=== PATIENT | male | born 1935 | race Caucasian/White ===

== ENCOUNTER 2017-01-20 12:15 | Inpatient (IN) | payer OTHER ==
[~2017-01-20] VITALS: Ht 170.2 cm; Wt 60.0 kg
--- NOTE | 2017-01-20 14:33 | DIAGNOSTIC IMAGING REPORT ---
PROCEDURE: CT HEAD W/WO CONTRAST INDICATION: STROKE SYMPTOMS. HX OF GLIOBAST TECHNIQUE: Noncontrast axial images. Following 125 ml of Isovue 370, axial images were repeated. Sagittal and coronal reformations. COMPARISON: Head CT 09/15/2016. FINDINGS: Status post left parietal craniotomy. No evidence of mass or abnormal enhancement. Mild cortical atrophy and enlargement of the ventricular system. Moderate white matter changes bilaterally. Small stable small right basal ganglia lacunar infarcts. There is no acute CVA or hemorrhage. with mild underlying encephalomalacia Minor ethmoid sinus disease. Mastoids are normal. IMPRESSION: 1. Left parietal craniotomy with no evidence of tumor recurrence 2. Mild atrophy with moderate white matter chronic ischemic changes and probable post radiation changes. 3. Results discussed with Dr. Britt at 01:54 p.m., [place] Standard Time All CT scans at this facility use dose modulation, iterative reconstruction, and/or weight-based dosing when appropriate to reduce radiation dose to as low as reasonably achievable.
--- NOTE | 2017-01-20 15:08 | ED ORDER SUMMARY ---
..... Patient: WILIAN SHIELDS OrderSheet Merged With [facility] VisitID: [id number] [place] [address] 81y, M Registration Date/Time: 01/20/2017 ORDER SHEET Weight: 63.5 kg (stated) Allergies: None GENERAL ORDERS: CT Head wo Cont Urgent (12:01/20/2017 Brandan Blanco) (Ack 12:25 SANDRITAurca ER Tech1) (12:32 Brandan Blanco) (Cancelled: Duplicate Order12:32 Brandan Blanco) CTA Head w Cont (No) (N/A) Urgent (12:01/20/2017 Brandan Blanco) (Ack 12:25 IJurccandida ER Tech1) (Cancelled: Duplicate Order12:31 Brandan Blanco) Denture Packer (Continuous) (possible stroke) (12:01/20/2017 Brandan Blanco) (Ack 12:25 Elhama ER Tech1) (12:35 Bunny R.N.) Pulse oximeter (possible stroke) (12:01/20/2017 Brandan Blanco) (Ack 12:25 Hernando ER Tech1) (12:35 Bunny R.N.) Stroke Panel Stat (12:01/20/2017 Brandan Blanco) (Ack 12:25 SANDRITAurccandida ER Tech1) (12:36 Bunny R.N.) TSH Urgent (12:01/20/2017 Brandan Blanco) (Ack 12:25 SANDRITAurccandida ER Tech1) (12:36 Bunny R.N.) EKG - ER Stat (12:01/20/2017 Brandan Blanco) (Ack 12:25 SANDRITAurccandida ER Tech1) (13:19 RKaruga) CT Head w/wo Cont (No) (N/A) Urgent (12:32 01/20/2017 Brandan Blanco) (Ack 12:38 SANDRITAurca ER Tech1) (14:57 Bunny R.N.) UA-Culture if indicated Urgent (16:04 01/20/2017 Bunny Fung.Bob per protocol) (16:07 JSimbeck R.N.) MEDICATION ORDERS: IV FLUIDS: IV Saline Lock (12:22 01/20/2017 Brandan Blanco) (12:37 Bunny Bliss) Dexamethasone IV 10 mg (NOW) (14:50 01/20/2017 Brandan Blanco) (Ack 14:57 Bunny Bliss) (15:19 Bunny Fung.Bob) ORDER SHEET NOTES: [Electronically signed by Tina Looney R.N. (16:52 01/20/2017)] [Electronically signed by Aashish Britt Dr. (00:30 01/21/2017)] [Electronically locked/signed by Tina Looney R.N. (16:52 01/20/2017)]
--- NOTE | 2017-01-20 15:08 | ED NURSING NOTES ---
Clinical Report - [facility] [address] [place] [address] 01/20/2017 12:17 Patient: WILIAN SHIELDS TRIAGE Triage time 12:22. Acuity: LEVEL 3. Chief Complaint: CONFUSED. Alert. No acute distress. ( FSBS 104). LUIS COMA SCORE: Luis Coma Scale: 14- eyes open spontaneously (4); best verbal response- disoriented (4); best motor response- obeys commands (6). (oriented to person and place). --12:35 Tina Looney R.N. 12:21 01/20/17. BP: 189/72. HR: 68. RR: 20. O2 saturation: 98% on room air. Temp: 98.7 F (oral). Pain level now: 0/10. --12:35 Tina Looney R.N. Weight: 63.5 kg stated. Height/Length: 67 inches Per Patient. BMI: 21.9. --12:29 Tina Looney R.N. Medications Allopurinol Oral 100 mg. Amlodipine Besylate-Valsartan Oral. Aspirin Oral. Avastin Intravenous, every 2 weeks (l). Colchicine Oral 0.6 mg. Daily Vitamin Oral. Lisinopril Oral 40 mg. [place] 3 Oral (Capsule 1000 mg). Prostate Therapy Complex Oral. Simvastatin Oral 20 mg. Triamcinolone & Emollient External. Vitamin D Oral. --12:33 Tina Looney R.N. Medication/allergy information source: the patient's family. --12:35 Tina Looney R.N. Allergies None. --12:33 Tina Looney R.N. History Arrived by private vehicle. Historian: family. Accompanied by family. Primary physician (Kalpana). This started unknown. ( daughter went to pick him up to run some errands this morning and found his room in disarray, he told her he couldn't find a specific card and he had been looking for it, daughter states he was making repetitive movements, he is oriented to place and person). SOCIAL HX: Former smoker. No alcohol use or drug use. LEARNING NEEDS ASSESSMENT: The learning needs assessment revealed no barriers. FALL RISK ASSESSMENT: Fall risk assessment completed. Risk factors identified include patient age greater than 65 years and impairment of mobility. Fall interventions initiated. Patient placed on stretcher. Side rails up x2. Brakes on Bed in low position. FUNCTIONAL ASSESSMENT: Functional assessment performed: requires assistance with the activities of daily living; uses walker- this mobility impairment is an ongoing problem. --12:35 Tina Looney R.N. PROBLEMS: Glioblastoma Multiforme. CVA - Cerebrovascular Accident. Gout. Cataracts. Hypercholesterolemia. Prostatitis. Hypertension. --12:28 Tina Looney R.N. ADDITIONAL SURGERIES: Tumor removal. Vasectomy. --12:28 Tina Looney R.N. Assessment GENERAL / NEURO / PSYCH: Alert. Appears in no acute distress. Patient appears calm and cooperative. RESPIRATORY: Respirations not labored. SKIN: Skin is warm and dry. --12:35 Tina Looney R.N. Interventions ID band on patient. To treatment room. --12:35 Tina Looney R.N. PHYSICAL ASSESSMENT 12:25. To room via wheelchair. Patient gowned. ( oriented to person and place, F- equal , A- good, S- normal, T- daughter states yesterday). GENERAL / NEURO / PSYCH: The patient is awake, alert and in no distress and is cooperative. RESPIRATORY: Respirations not labored. SKIN: Skin is warm but moist. --13:23 Tina Looney R.N. NURSING PROGRESS NOTES 12:37 01/20/2017 Site #1 started via IV in the right antecubital space with an 20g angiocath, with aseptic technique and good blood return; one attempt. Blood drawn: rainbow set. Labeled in the presence of the patient and sent to the lab. Saline lock flushed with 10 mL saline (by Pamela PECK). --12:37 Tina Looney R.N. 12:25. monitoring analyst, pulse oximeter and NIBP monitor placed on patient. Patient gowned. Head of bed elevated. Call light placed in reach. Side rails up x 2. Bed placed in lowest position. Brakes of bed on. --13:23 Tina Looney R.N. 13:54 01/20/17. BP: 138/54. HR: 64. RR: 16. O2 saturation: 99% on room air. Pain level now: 0/10. Additional comments: monitor shows NSR. --13:55 Pamela Yeboah R.N. 14:09 01/20/17. Cardiac rhythm: sinus rhythm. The patient is resting quietly. Overall patient status is the same- he states feels the same (pt lies on the bed, calling out that he is seeing "lite" flashes of red and white lights, family at bedside). GENERAL / NEURO / PSYCH: Patient is calm and cooperative. Alert. RESPIRATORY: No respiratory distress. SKIN: Skin is warm and dry. --14:09 Tina Looney R.N. 14:06 01/20/17. BP: 146/70. HR: 66. RR: 22. O2 saturation: 100%. Pain level now: 0/10. --14:09 Tina Looney R.N. EKG time: (13:15). EKG was performed by a tech and shown to the ED physician. --14:20 Ariana Porter 15:06 01/20/17. The patient is calm. Overall patient status is the same- he states feels the same (saying he needs to urinate, urinal placed and the pt is holding it). GENERAL / NEURO / PSYCH: Patient is calm and cooperative. Alert. RESPIRATORY: No respiratory distress. CVS: Cardiac rhythm: sinus rhythm. SKIN: Skin is warm and dry. --15:07 Tina Looney R.N. 15:18 Dr Olivarez @ bedside. --15:18 Tina Looney R.N. 15:19 01/20/2017 Dexamethasone IVP 10 mg given over 5 minute(s) via site #1. Allergies verified and confirmed 5 rights. IV patency established. IV site checked: no pain, redness, or swelling. IV flushed thoroughly pre- and post-medication administration. IVP given by RN (by chart). --15:19 Tina Looney R.N. 15:23 01/20/17. --15:23 Tina Looney R.N. 15:19 01/20/17. BP: 135/95. HR: 66. RR: 16. O2 saturation: 99% on room air. Pain level now: 0/10. --15:23 Tina Looney R.N. 15:45 assisted with urinal by ervin Griffin to lab. --16:40 Tina Looney R.N. 16:35. Reassessment after procedure and medication administered. Overall patient status is improved- he states feels the same (when Dr Olivarez was @ bedside, pt was oriented to person, place and time; he was starting to get slightly agitated because he "couldn't push the red button", tried to explain that he was going to a different room but he wanted the button). GENERAL / NEURO / PSYCH: Alert. RESPIRATORY: No respiratory distress. CVS: Cardiac rhythm: sinus rhythm. SKIN: Skin is warm and dry. --16:44 Tina Looney R.N. 13:00 01/20/17. BP: 145/74. HR: 68. RR: 19. O2 saturation: 98% on room air. --16:46 Tina Looney R.N. 14:30 01/20/17. BP: 139/71. HR: 63. RR: 18. O2 saturation: 99%. --16:51 Tina Looney R.N. DISPOSITION / DISCHARGE 16:28 01/20/17. Admitted to Acute Care. Transported via stretcher by [employer]. Report was given to a nurse via a phone call. All questions were answered. Report was acknowledged. ( transported to floor with SL intact). Patient's personal items include, daughter took pt's wallet, glasses, shirt and vest;. --16:28 Tina Looney R.N. 16:10 01/20/17. BP: 158/74. HR: 68. RR: 21. O2 saturation: 99% on room air. Pain level now: 0/10. --16:28 Tina Looney R.N. Patient's personal items include, jeans, belt, shoes; items were transported with the patient. --16:29 Tina Looney R.N. Departure time: [id number]. --16:39 Tina Looney R.N. Locked/Released at 01/20/2017 16:52 by Tina Looney R.N.
--- NOTE | 2017-01-20 15:08 | ED CLINICAL REPORT ---
Clinical Report - Physicians/Mid Levels [facility] [address] [place] [address] 01/20/2017 12:17 Patient: WILIAN SHIELDS Time Seen: 1218. Arrived- By private vehicle. Historian- patient. HISTORY OF PRESENT ILLNESS Chief Complaint: altered mental status. 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 It was abrupt in onset and has been constant but is gone now. Is now gone. (repeating behavior of taking shoes on and off). At its maximum deficit described as moderate. When seen in the E.D., it was gone. The patient has had altered mental status. Usually is alert and oriented X3. Similar symptoms previously: Once. ( getting treatment for glioblastoma. daughter states this happened last time and got better with "steroids"). Recent medical care: The patient was seen recently in a clinic. REVIEW OF SYSTEMS No chest pain or difficulty breathing. He has had skin rash. All systems otherwise negative, except as recorded above. PAST HISTORY See nurses notes. Medications: Allopurinol Oral 100 mg. Amlodipine Besylate-Valsartan Oral. Aspirin Oral. Avastin Intravenous, every 2 weeks (l). Colchicine Oral 0.6 mg. Daily Vitamin Oral. Lisinopril Oral 40 mg. [place] 3 Oral (Capsule 1000 mg). Prostate Therapy Complex Oral. Simvastatin Oral 20 mg. Triamcinolone & Emollient External. Vitamin D Oral. Allergies: None. SOCIAL HISTORY Never smoker. No alcohol use or drug use. No recent travel. Is a local resident. ADDITIONAL NOTES The nursing notes have been reviewed. PHYSICAL EXAM Vital Signs: 01/20/2017 12:21 BP: 189/72. HR: 68. RR: 20. O2 saturation: 98%. Temp: 98.7 F. Pain level now: 0/10. Hypertensive. Oxygen saturation normal. Appearance: Alert. No acute distress. Head: Head atraumatic. Eyes: Pupils equal, round and reactive to light. ENT: Normal ENT inspection. Airway intact. Pharynx normal. Neck: Normal inspection. Neck supple. No meningeal signs. CVS: Normal heart rate and rhythm. Pulses normal. Respiratory: No respiratory distress. Abdomen: Soft and nontender. No organomegaly. Skin: Skin warm and dry. Normal skin color. No rash. Normal skin turgor. Extremities: Extremities exhibit normal ROM. No lower extremity edema. Neuro: Alert. Oriented X 3. Mood/affect normal. Speech normal. Cranial nerves normal (as tested). No cerebellar findings. No motor deficit. No sensory deficit. Reflexes normal. LABS, X-RAYS, AND EKG EKG: No acute ischemia. Normal sinus rhythm. Rate: 60. Normal P waves. First-degree atrioventricular block (218). Normal QRS complex. Normal ST and T waves, QT and QTc. normal sinus with 1st degree AV block. The study has been interpreted contemporaneously. The study has been independently viewed by me. The EKG appears to be a good tracing. CT Head: (PROCEDURE: CT HEAD W/WO CONTRAST INDICATION: STROKE SYMPTOMS. HX OF GLIOBAST TECHNIQUE: Noncontrast axial images. Following 125 ml of Isovue 370, axial images were repeated. Sagittal and coronal reformations. COMPARISON: Head CT 09/15/2016. FINDINGS: Status post left parietal craniotomy. No evidence of mass or abnormal enhancement. Mild cortical atrophy and enlargement of the ventricular system. Moderate white matter changes bilaterally. Small stable small right basal ganglia lacunar infarcts. There is no acute CVA or hemorrhage. with mild underlying encephalomalacia Minor ethmoid sinus disease. Mastoids are normal. IMPRESSION: 1. Left parietal craniotomy with no evidence of tumor recurrence 2. Mild atrophy with moderate white matter chronic ischemic changes and probable post radiation changes.). Head CT performed with and without contrast. The study was independently viewed by me, interpreted by the radiologist and discussed with the radiologist. Laboratory Tests: CBC w Diff: (CARYN: 01/20/2017 12:30) ( MsgRcvd 01/20/2017 12:43) Final results Test Result Flag Units (Reference) WHITE BLOOD COUNT 6.0 K/uL (4.5-11.5) RED BLOOD COUNT 4.62 M/uL (4.50-5.90) HEMOGLOBIN 14.3 gm/dL (13.5-17.5) HEMATOCRIT 42.2 % (41.0-53.0) MEAN CELL VOLUME 91 fL (80-100) MEAN CORPUSCULAR HGB 31 pg (26-34) MEAN CORPUSCULAR HGB CONC 34 g/dL (31-37) RED CELL DISTRIBUTION WIDTH 13.6 % (11.6-14.8) PLATELET COUNT 132 L K/uL (150-400) NEUTROPHIL % 67.5 % (50-75) LYMPH % 20.3 L % (25-40) MONO % 10.7 % (3-14) EOSINOPHIL % 1.2 % (0-4) BASOPHIL % 0.3 % (0-2) PT with INR: (CARYN: 01/20/2017 12:30) ( [facility] 01/20/2017 13:03) Final results Test Result Flag Units (Reference) INR 0.9 (0.8-1.2) Low Intensity Therapy: INR 1.5-2.0 PT range 18.5-23.1Mod.Intensity Therapy: INR 2.0-3.0 PT range 23.1-31.5High Intensity Therapy: INR 2.5-3.5 PT range 27.4-35.5High Intensity Therapy 2: INR 3.0-4.0 PT range 31.5-39.3 APTT 27 SECONDS (24-34) FIBRINOGEN 350 mg/dL (193-455) D-DIMER QUANTITATIVE 1.47 H ug/mLFEU (0.27-0.52) The primary value of this quantitative assay relates toits negative predictive value (i.e. exclusion) of pulmonaryembolism/deep vein thrombosis/DIC.Elevated levels of d-dimer may also occur with:, age, cancer, inflammation, liver disease,post-op, infection, hematoma, coronary disease, peripheralarteriopathy, bleeding disorders and thrombolytic treatment.Results should be correlated with other clinical andradiological data.Testing Methodology: Latex Immunoassay TSH: (CARYN: 01/20/2017 12:30) ( [facility] 01/20/2017 14:07) Final results Test Result Flag Units (Reference) THYROID STIMULATING HORMONE 2.517 uIU/mL (0.30-3.74) CMP: (CARYN: 01/20/2017 12:30) ( MsgRcvd 01/20/2017 13:06) Final results Test Result Flag Units (Reference) GLUCOSE 110 mg/dL (70-110) BUN 21 H mg/dL (7-18) CREATININE 1.2 mg/dL (0.6-1.3) Estimated GFR >60 mL/min Estimated GFR- >60 mL/min Note: Persistent reduction over 3 months in eGFR<60 mL/min/1.73 m2 defines CKD. Patients with eGFR values>=60 mL/min/1.73 m2 may also have CKD if evidence ofpersistent proteinuria. Additional information may be foundat www.kidney.org. SODIUM 142 mmol/L (136-145) POTASSIUM 4.4 mmol/L (3.5-5.1) CHLORIDE 104 mmol/L (98-107) CARBON DIOXIDE 28 mmol/L (21-32) CALCIUM 9.2 mg/dL (8.5-10.1) TOTAL PROTEIN 7.2 g/dL (6.4-8.2) ALBUMIN 4.0 g/dL (3.3-5.0) BILIRUBIN, TOTAL 1.1 H mg/dL (0.0-1.0) ALKALINE PHOSPHATASE 89 U/L (46-116) AST (SGOT) 20 U/L (15-37) ALT (SGPT) 23 U/L (12-78) . PROGRESS AND PROCEDURES Course of Care: the patient is a pleasant 81-year-old male with past medical history significant for glioblastoma who is currently undergoing treatment. Patient had a prior episode like this in the past with an exacerbation of his glioblastoma which resolved with steroid treatme Differential diagnosis at this time includes a stroke versus cerebral edema versus intracranial bleed. Patient and the daughter are agreeable to the treatment plan at this time. No other concerns at this time. Patient is afebrile. No concern for meningitis. Patient's workup was remarkable for the findings above. Patient with no acute changes on CT scan of the head. EKG is unremarkable. Patient without any allegedly abnormalities. Because of the patient's workup in the emergency arm will discuss care with his doctor is taking care of his glioblastoma. Patient otherwise continues to have a nonfocal neurological examination and is appropriate and cooperative. Had spoken to Dr. Shaffer recommended the patient be observed because of the abnormal behavior. Also recommended steroids be given. No further recommendations made. Do not feel patient needs to be transferred at this time. Spoke to the hospitalist who states that the patient can be admitted if he meets criteria for admission. Spoke to neurology at [facility] who also agreed that the patient should be observed and have steroids given. Recommended patient also be hydrated. Steroids should be given dexamethasone 4 mg every 6. Steroids of guardian initially been given prior to neurology's recommendations. Patient continues to be resting in bed and in no acute distress. Was able to speak to the hospitalist who is agreeable to accept the patient under observation. No other acute other maladies noted. Discussed patient care with the daughter. No further questions. All questions answered. Patient is agreeable to the treatment plan. prior to patient's departure from the emergency department is noted to have no focal neurological deficits. Patient is resting in bed and in no acute distress. Patient appears nontoxic. No concern at this time for meningitis or serious bacterial infection. Symptoms likely due to the patient's and glioblastoma. discussed with the patient is workup here in emergency department: Diagnosis, workup, and plan of care. All questions have been answered. The patient is agreeable to the treatment plan. of note, no acute findings or changes noted on patient's CT scan of the head however because of his symptoms, would be concerned for edema not found on CT scan. Per neurology's recommendations as well as patient's doctor who is managing his and glioblastoma an outpatient, will start patient on IV Decadron. Recommended 4 mg of Decadron every 6 hours. Critical care performed (65 minutes). Time is exclusive of separately billable procedures. Time includes: direct patient care, patient reassessment, coordination of patient care, interpretation of data (laboratory data), review of patient's medical records, medical consultation, family consultation regarding treatment decisions and documentation of patient care. Consult obtained. Dr. Shaffer. Recommended dexamethazone and observation. Phone consult only. CLINICAL IMPRESSION Acute altered mental status cerebral edema secondary to glioblastoma. (Electronically signed by Aashish Britt Dr. 01/21/2017 0:30)
--- NOTE | 2017-01-20 15:08 | ED ORDER SUMMARY ---
..... Patient: WILIAN SHIELDS OrderSheet [facility] VisitID: [id number] [place] [address] 81y, M Registration Date/Time: 01/20/2017 ORDER SHEET Weight: 63.5 kg (stated) Allergies: None GENERAL ORDERS: CT Head wo Cont Urgent (12:01/20/2017 Brandan Blanco) (Ack 12:25 SANDRITAurca ER Tech1) (12:32 Brandan Blanco) (Cancelled: Duplicate Order12:32 Brandan Blanco) CTA Head w Cont (No) (N/A) Urgent (12:01/20/2017 Brandan Blanco) (Ack 12:25 IJurccandida ER Tech1) (Cancelled: Duplicate Order12:31 Brandan Blanco) Quality Manager (Continuous) (possible stroke) (12:01/20/2017 Brandan Blanco) (Ack 12:25 Elhama ER Tech1) (12:35 Bunny R.N.) Pulse oximeter (possible stroke) (12:01/20/2017 Brandan Blanco) (Ack 12:25 Hernando ER Tech1) (12:35 Bunny R.N.) Stroke Panel Stat (12:01/20/2017 Brandan Blanco) (Ack 12:25 SANDRITAurccandida ER Tech1) (12:36 Bunny R.N.) TSH Urgent (12:01/20/2017 Brandan Blanco) (Ack 12:25 SANDRITAurccandida ER Tech1) (12:36 Bunny R.N.) EKG - ER Stat (12:01/20/2017 Brandan Blanco) (Ack 12:25 SNADRITAurccandida ER Tech1) (13:19 RKaruga) CT Head w/wo Cont (No) (N/A) Urgent (12:32 01/20/2017 Brandan Blanco) (Ack 12:38 SANDRITAurca ER Tech1) (14:57 Bunny R.N.) UA-Culture if indicated Urgent (16:04 01/20/2017 Bunny Fung.Bob per protocol) (16:07 JSimbeck R.N.) MEDICATION ORDERS: IV FLUIDS: IV Saline Lock (12:22 01/20/2017 Brandan Blanco) (12:37 Bunny Bliss) Dexamethasone IV 10 mg (NOW) (14:50 01/20/2017 Brandan Blanco) (Ack 14:57 Bunny Bliss) (15:19 Bunny Fung.Bob) ORDER SHEET NOTES: [Electronically signed by Tina Looney R.N. (16:52 01/20/2017)] [Electronically signed by Aashish Britt Dr. (00:30 01/21/2017)] [Electronically locked/signed by Tina Looney R.N. (16:52 01/20/2017)]
--- NOTE | 2017-01-20 16:26 | HISTORY AND PHYSICAL ---
ADMITTED: 01/20/2017 CHIEF COMPLAINT: 1. Confusion HISTORY OF PRESENT ILLNESS: This is an 81-year-old white male who is not able to give any history at all and no family member around, so history was taken from the ED notes and EMS notes. Reportedly the daughter found him in his room with the furniture in disarray and trashed. The patient is confused and making nonpurposeful spontaneous movements, involuntary movements, confused and lethargic, and was not aware of what he is doing and where he is. So the patient was taken to emergency for further evaluation. The patient unable to find a cart and was not able to locate and could not say what exactly he was looking for, and had repeated unpurposeful movements. MEDICAL/SURGICAL HISTORY: Past medical history was remarkable for glioblastoma multiforme, which has been going on for some time. The patient looks like he had a surgery, which was ------- successful. Also a history of a stroke, gout, hypercholesteremia, hypertension, and cataract. Surgical history: Remarkable for tumor removal and vasectomy. Last hospitalizations, according to the old charts, was on 08/05/2015 for brain surgery. MEDICATIONS: 1. Allopurinol 100 mg daily. 2. Amlodipine and Losartan, dosages not known. 3. Aspirin 81 mg daily. 4. Avastin intravenous every 2 weeks. 5. Colchicine 0.6 mg daily. 6. Lisinopril 40 mg daily. 7. Zocor 20 mg daily. 8. Vitamin D supplement. ALLERGIES: 1. NO KNOWN DRUG ALLERGY. SOCIAL HISTORY: A 15 pack year history, quit 30 years ago. No alcohol use in the last 10 years. No drug abuse. The patient lives with his girlfriend and has a daughter. FAMILY HISTORY: Noncontributory. REVIEW OF SYSTEMS: Could not be obtained, since the patient was not be able to give any history. PHYSICAL EXAMINATION: VITAL SIGNS: Blood pressure is 189/72, pulse is 68. Respirations 20, oxygen saturation 98% on room air, temperature is 98.7. GENERAL APPEARANCE: Well-developed, well-nourished. The patient does not seem in any acute distress, but seems confused and lethargic. HEAD AND NECK: Ears: Normal tympanic membranes. Mouth: Normal hypopharynx, no exudation, no erythema. Nose: Normal mucosa. Neck supple. No JVD. No carotid bruit. No palpable mass. SKIN: Warm and dry with good turgor. LUNGS: Clear to auscultation. No rhonchi or wheezing or crackles. HEART: Regular S1 and S2. No murmur, no S3 was heard. ABDOMEN: Soft, nontender. Bowel sounds are positive. EXTREMITIES: No edema. Good peripheral pulses. No signs of DVT or cyanosis. MUSCULOSKELETAL: Grossly within normal limits. NEUROLOGIC: The patient is alert and oriented x3 but quite confused and is not able to give any straight answer or engage in a meaningful conversation. The patient is able to follow the commands only partially. Pupils are equal, round, and reactive to light. Extraocular movements could not be evaluated. No motor deficits. No cerebella sign, but the patient has rough spontaneous upper extremity movements. Deep tendon reflexes are bilateral and symmetric. No cerebellar signs. LAB/IMAGING: EKG is unremarkable, normal sinus rhythm. White blood count is 6, hemoglobin is 14.3, hematocrit 42.2, and platelet count is 132. D-dimer was 1.47. INR is 0.9. Fibrinogen is 350. TSH is 2.5. Glucose 110, BUN is 21, creatinine is 1.2, sodium is 142, potassium is 4.4, chloride is 104, CO2 is 28, calcium is 9.2. Liver enzymes unremarkable. CT of the head shows a glioblastoma but per ED physician research and compared to the old one seems stable and not much change in size. IMPRESSION: 1. Glioblastoma. 2. Hypertension. 3. Hyperlipidemia. 4. Gout. PLAN: In discussion that the emergency department physician had with the patient 's neurologist also, [facility], the patient will be admitted for observation and neuro checks. We will put the patient on Decadron 4 mg every 6 hours and neuro check will be done, and if the patient shows any dramatic change of the neurologic exam or increased focal neurologic symptoms, we will definitely do MRI of the brain, but for now I am going to hold on MRI of the brain. Even though D-dimer is high, there are no other signs indicating PE, so I am not going to hold on the CT angiogram for the time being, since the patient is stable in terms of breathing and no other symptoms. Patient was not able to give consent for code status and no family was availabe but they will bring the advance care plan from home soon.
--- NOTE | 2017-01-20 16:45 | NUR ---
PT'S LOC IS ALTERED AND UNABLE TO ANSWER QUESTIONS FOR INTAKE. ENTERED MUCH INFORMATION FROM DAUGHTER NELA PROVIDED WHILE IN ED.
[2017-01-20 17:18] VITALS: BP 188/101
--- NOTE | 2017-01-20 19:50 | NUR ---
Pt continued to want to urinate without output, student career development specialist scanned bladder with 990 ml in bladder. Notified MD Rosa NAGY ordered wright catheter, This rn placed wright without issue. 15ml saline is in folley balloon to hold tubing in place. Will notify next rn. Output from wright is light yellow 900ml. wctm. Pt seems to be resting now.
[2017-01-20 21:47] VITALS: BP 147/67
--- NOTE | 2017-01-20 23:46 | NUR ---
AROUND 30 MINUTES AGO, PT AWOKE AND WAS AGGITATED. ATTEMPTING TO REMOVE IV, CATHETER, BED LINENS, CRAWLING OUT OF BED...NO STRIKING AT STAFF. SITTER PLACED IN ROOM, NOTIFIED . DR CHO ORDERED VASOTEC 1.25MG IV Q6 FIRST DOSE NOW, 1.5 INCH NITRO PASTE Q6, 0.5 MG ATIVAN Q4/PRN FOR AGGITATION. PANTS ARE PLACED ON PT, IV SITE IS WRAPPED IN COBAN UP THE ARM TO PROTECT IV SITE. ORDERS SENT. [facility].
--- NOTE | 2017-01-21 00:31 | ED MAR SUMMARY ---
..... Medication Administration Record [facility] [address] [place] [address] Patient: WILIAN SHIELDS Visit ID: [id number] 81y, M Weight: 63.5 kg Height/Length: 67 in BMI: 21.9 ALLERGIES: None Given 15:19 01/20/2017 Tina Looney R.N. Medication Administered: DEXAMETHASONE [IVP], Dose: 10 mg IVP over 5 minute(s), Site: #1 right AC. Medication Ordered: Dexamethasone IV 10 mg (NOW).
--- NOTE | 2017-01-21 00:31 | ED DISCHARGE INSTRUCTIONS ---
Patient: WILIAN SHIELDS General Instructions [facility] VisitID: [id number] [address] [place] [address] 81y, M Registration Date/Time: 01/20/2017 Acute altered mental status cerebral edema secondary to glioblastoma. (Electronically signed by Aashish Britt Dr. 01/21/2017 0:30)
--- NOTE | 2017-01-21 00:31 | ED DISCHARGE INSTRUCTIONS ---
Patient: WILIAN SHIELDS General Instructions [facility] VisitID: [id number] [address] [place] [address] 81y, M Registration Date/Time: 01/20/2017 Acute altered mental status cerebral edema secondary to glioblastoma. (Electronically signed by Aashish Britt Dr. 01/21/2017 0:30)
--- NOTE | 2017-01-21 00:31 | ED MAR SUMMARY ---
..... Medication Administration Record [facility] [address] [place] [address] Patient: WILIAN SHIELDS Visit ID: [id number] 81y, M Weight: 63.5 kg Height/Length: 67 in BMI: 21.9 ALLERGIES: None Given 15:19 01/20/2017 Tina Looney R.N. Medication Administered: DEXAMETHASONE [IVP], Dose: 10 mg IVP over 5 minute(s), Site: #1 right AC. Medication Ordered: Dexamethasone IV 10 mg (NOW).
--- NOTE | 2017-01-21 00:31 | ED MED RECONCILIATION SUMMARY ---
Patient: WILIAN SHIELDS Medication Reconciliation Report [facility] VisitID: [id number] [address] [place] [address] 81y, M Registration Date/Time: 01/20/2017 Weight: 63.5 kg Height/Length: 67 in. BMI: 21.9 ALLERGIES: None The patient's Home Medications are listed below: THE FOLLOWING MEDICATIONS NEED TO BE RECONCILED: Allopurinol Oral 100 mg Amlodipine Besylate-Valsartan Oral Aspirin Oral Avastin Intravenous, every 2 weeks, l Colchicine Oral 0.6 mg Daily Vitamin Oral Lisinopril Oral 40 mg [place] 3 Oral (1000 mg) Prostate Therapy Complex Oral Simvastatin Oral 20 mg Triamcinolone & Emollient External Vitamin D Oral The source(s) of the original Home Medication information: patient's family member The following Medications were given to the patient in the Emergency Department: Dexamethasone [IVP] IVP 10 mg, administered: 01/20/2017 3:19:00 PM The following Medications were prescribed to the patient: None.
--- NOTE | 2017-01-21 00:31 | ED MED RECONCILIATION SUMMARY ---
Patient: WILIAN SHIELDS Medication Reconciliation Report [facility] VisitID: [id number] [address] [place] [address] 81y, M Registration Date/Time: 01/20/2017 Weight: 63.5 kg Height/Length: 67 in. BMI: 21.9 ALLERGIES: None The patient's Home Medications are listed below: THE FOLLOWING MEDICATIONS NEED TO BE RECONCILED: Allopurinol Oral 100 mg Amlodipine Besylate-Valsartan Oral Aspirin Oral Avastin Intravenous, every 2 weeks, l Colchicine Oral 0.6 mg Daily Vitamin Oral Lisinopril Oral 40 mg [place] 3 Oral (1000 mg) Prostate Therapy Complex Oral Simvastatin Oral 20 mg Triamcinolone & Emollient External Vitamin D Oral The source(s) of the original Home Medication information: patient's family member The following Medications were given to the patient in the Emergency Department: Dexamethasone [IVP] IVP 10 mg, administered: 01/20/2017 3:19:00 PM The following Medications were prescribed to the patient: None.
--- NOTE | 2017-01-21 01:23 | NUR ---
PT given 0.5 mg Ativan for aggitation. wctm.
--- NOTE | 2017-01-21 02:35 | NUR ---
CALLED MD TO REQUEST TELE BE REMOVED FOR PT'S SAFETY. VSDallas AND MD MARQUIS ASHFORD'D REMOVAL OF TELE.
--- NOTE | 2017-01-21 03:24 | NUR ---
PT FINALLY FELL ASLEEP.
--- NOTE | 2017-01-21 05:21 | NUR ---
NOTIFIED MD CHO THAT PT IS INCREASING IN AGGITATION AND BEGINNING TO STRIKE OUT AND PUSH AWAY STAFF. PT'S EYES ARE CLOSED AND NO LONGER RESPONGING TO STAFF DIRECTIONS. CRAWLING OUT OF BED, REMOVING BEDDING AND CLOTHES. MD CHO ORDERED 2.5 MG HALDOL IM NOW. WCTM.
--- NOTE | 2017-01-21 06:13 | NUR ---
PT SLEPT FOR A TOTAL OF AN HOUR. ADMIN HALDOL AND PT'S BODY LOOKED RELAXED, NO TWITCHING, REACHING OUT. WCTM.
[2017-01-21 07:44] VITALS: BP 142/62
--- NOTE | 2017-01-21 09:09 | NUR ---
PATIENT CALM THIS AM AND ANSWERING QUESTIONS APPROPRIATELY. ATE BREAKFAST WITH HELP OF SYSTEMS CONSULTANT. PATIENT COMES FROM AL FACILITY. NOT IMPULSIVE THIS AM. STATES HE WOULD LIKE PATIENT TO AMBULATE IN HALLS TODAY AND IF OK PATIENT TO DC TO HOME. MADE PHONE CALL TO DTR.
--- NOTE | 2017-01-21 10:18 | Progress Note ---
Subjective General ADVANCED CARE PLAN History of Present Illness his is an 81-year-old white male who is not able to give any history at all and no family member around, so history was taken from the ED notes and EMS notes. Reportedly the daughter found him in his room with the furniture in disarray and trashed. The patient is confused and making nonpurposeful spontaneous movements, involuntary movements, confused and lethargic, and was not aware of what he is doing and where he is. So the patient was taken to emergency for further evaluation. The patient unable to find a cart and was not able to locate and could not say what exactly he was looking for, and had repeated unpurposeful movements. A discussion was undertaken with the patient regarding previous advance care arrangements/decisions. The following advanced directives were noted by the patient and discussed with me at the time of admission. ADVANCED DIRECTIVES: 1. Living well: He has 2. POLST: He has 3. CODE STATUS: 4. [facility] care: Yes 5. Donor card: Yes The patient has expressed interest in not pursuing any form of resuscitation at this time. She has opted not to pursue intubation/mechanical ventilation, CPR, electrical cardioversion, or life-sustaining efforts involving drugs at the time of cardiopulmonary arrest. The patient's wishes were documented in the chart and orders regarding the patient's wishes entered into the [employer] system. The "Advance Care Plan Document" was not distributed to patient to discuss with his family. Less than 30 minutes was spent in performing the above tasks and documentation of the patient's advanced care plan.
[2017-01-21 11:28] VITALS: BP 129/46
--- NOTE | 2017-01-21 12:22 | Progress Note ---
Subjective General patinet is alert&oridetedx3, comfortalbe in bed seems calm but had a rough night, tried to ambulate could not, hard to initiate walking and keep his balance Physical Exam Vital Signs / I&Os Vital Signs Date Time Temp Pulse Resp B/P Pulse O2 O2 Flow FiO2 Ox Delivery Rate 01/21 1128 98.6 75 20 129/46 98 Room Air 0.0 01/21 0744 98.1 68 22 142/62 97 Room Air 0.0 01/20 2147 99.7 85 16 147/67 92 Room Air 01/20 1718 97.5 79 20 188/101 99 Room Air I&O 01/21 0000 01/20 1600 01/20 0800 Intake Total 440 Output Total 1760 Balance -1320 General Appearance No acute distress Lungs Clear to auscultation Cardiovascular Regular rate and rhythm, Normal S1 and S2 Abdomen Normal bowel sounds, Soft, No tenderness Extremities No edema Neurological difficulty initiating walking and keeping his balance, no spontonious movments LAB Results Laboratory Tests 01/21 01/20 01/20 0615 1600 1230 Chemistry Plasma Sodium (136 - 145 mmol/L) 138 Plasma Potassium (3.5 - 5.1 mmol/L) 3.9 Plasma Chloride (98 - 107 mmol/L) 101 CO2 (Enzymatic) (21 - 32 mmol/L) 25 BUN (7 - 18 mg/dL) 21 Creatinine (0.6 - 1.3 mg/dL) 1.1 Est GFR ( Amer) (mL/min) >60 Est GFR (Non-Af Amer) (mL/min) >60 Glucose (70 - 110 mg/dL) 156 Plasma Calcium (8.5 - 10.1 mg/dL) 8.6 TSH 3rd Generation (0.30 - 3.74 uIU/mL) 2.517 Hematology WBC (4.5 - 11.5 K/uL) 6.6 RBC (4.50 - 5.90 M/uL) 4.29 Hgb (13.5 - 17.5 gm/dL) 13.1 Hct (41.0 - 53.0 %) 38.9 MCV (80 - 100 fL) 91 MCH (26 - 34 pg) 31 RDW (11.6 - 14.8 %) 13.1 Neut % (Auto) (50 - 75 %) 93.3 Lymph % (Auto) (25 - 40 %) 5.6 [place] % (Auto) (3 - 14 %) 1.1 Eos % (Auto) (0 - 4 %) 0 Baso % (Auto) (0 - 2 %) 0 Plt Count, EDTA (150 - 400 K/uL) 116 PUBS MCHC (31 - 37 g/dL) 34 Urines Urine Color YELLOW Urine Appearance CLEAR Urine pH (5.0 - 8.0) 8.0 Ur Specific [place] (1.010 - 1.030) 1.010 Urine Protein (NEGATIVE) NEGATIVE Urine Ketones (NEGATIVE) NEGATIVE Urine Blood (NEGATIVE) NEGATIVE Urine Nitrite (NEGATIVE) NEGATIVE Urine Bilirubin (NEGATIVE) NEGATIVE Urine Urobilinogen (0.2 - 1.0 EU/dL) 0.2 Ur Leukocyte Esterase (NEGATIVE) TRACE Urine RBC (0 - 1 rbc/hpf) NONE SEEN Urine WBC (0 - 1 wbc/hpf) 1-3 Ur Epithelial Cells (0 - 5 EPI/hpf) 0-1 Urine Bacteria (NONE SEEN) TRACE (<1+) Urine Glucose (NEGATIVE) NEGATIVE Urine Comment CULTURE INDICATED 01/20 1230 Chemistry Plasma Sodium (136 - 145 mmol/L) 142 Plasma Potassium (3.5 - 5.1 mmol/L) 4.4 Plasma Chloride (98 - 107 mmol/L) 104 CO2 (Enzymatic) (21 - 32 mmol/L) 28 BUN (7 - 18 mg/dL) 21 Creatinine (0.6 - 1.3 mg/dL) 1.2 Est GFR ( Amer) (mL/min) >60 Est GFR (Non-Af Amer) (mL/min) >60 Glucose (70 - 110 mg/dL) 110 Plasma Calcium (8.5 - 10.1 mg/dL) 9.2 Total Bilirubin (0.0 - 1.0 mg/dL) 1.1 AST (15 - 37 U/L) 20 ALT (12 - 78 U/L) 23 Alkaline Phosphatase (46 - 116 U/L) 89 Total Protein (6.4 - 8.2 g/dL) 7.2 Albumin (3.3 - 5.0 g/dL) 4.0 Coagulation INR (0.8 - 1.2) 0.9 APTT (24 - 34 SECONDS) 27 Fibrinogen (193 - 455 mg/dL) 350 D-Dimer, Quantitative (0.27 - 0.52 ug/mLFEU) 1.47 Hematology WBC (4.5 - 11.5 K/uL) 6.0 RBC (4.50 - 5.90 M/uL) 4.62 Hgb (13.5 - 17.5 gm/dL) 14.3 Hct (41.0 - 53.0 %) 42.2 MCV (80 - 100 fL) 91 MCH (26 - 34 pg) 31 RDW (11.6 - 14.8 %) 13.6 Neut % (Auto) (50 - 75 %) 67.5 Lymph % (Auto) (25 - 40 %) 20.3 [place] % (Auto) (3 - 14 %) 10.7 Eos % (Auto) (0 - 4 %) 1.2 Baso % (Auto) (0 - 2 %) 0.3 Plt Count, EDTA (150 - 400 K/uL) 132 PUBS MCHC (31 - 37 g/dL) 34 Microbiology Date/Time Procedure - Status Source Growth 01/20 1600 Urine Culture - RECD URINE CC Assessment and Plan Problem List 1. Glioblastoma Plan patient is not improving, was not able to ambulate, keep his balance had discussion wiht Dr. Valle Oncology-Radiology, will repeat MRI, continue Decadron, Talked to Dr Echeverria radiologist to communite with Dr valle after MRI done, Tried to transfer pt. to [place] with inpt neurology on board,they declined transfer, will change status of patient to inpatient. do PT evaluation continue Decadron 2. Altered mental status, unspecified Plan improved 3. HTN (hypertension) Plan controlled continue current meds
--- NOTE | 2017-01-21 13:33 | NUR ---
In to see patient with report of a skin tear to right elbow, small open area to right elbow, area cleansed with NS and Hydrogel applied, covered with adhesive bandage and coban (being used to support IV tubing and keep hime from pulling at it). WIll change q3days, and continue to monitor.
--- NOTE | 2017-01-21 13:36 | NUR ---
NUTRITION ASSESSMENT: S: Pt admitted with dx/o confusion with PMH of glioblastoma, gout, stroke, hypercholesterolemia, HTN, cataract, gout. Pt eating well, fed all meals and 1:1 with care. Pt needs cut up moist foods per nsg, will alert kitchen staff. Pt likes sweets per report. O: Wts: 62.5 kg Ht: 67" IBW: 58-73 kg BMI: 21.6 Est Kcals: ~3644-2031 kcals per day Est Pro: ~70-80 g per day Est Fluids: ~2.0 L per day Meds Incl: allopurinol, aspirin, lipitor, colchicine, lisinopril, nitro, protonix, dexamthisone, see eMar complete list. Labs Incl: glucose 156, BUN 21, Na+ 138, K+ 3.9, Ca+ 8.6, HCT 38.9, HGB 13.1, MCV 91, MCH 31, (5/4) albumin 4.0, total pro 7.2 Skin: Faisal 15; waffle overlay in place (skin tear right elbow, contusion) A: Pt appears to have a good/fair appetite ~40-80% of general diet. Rec above modifications to foods suggested above. Rev'd meds and labs. Noted glucose lab elevated, however may be influenced by steroid rx (dexamethisone). Rec encourage po and fluids, offer assist and feeding with meals. Mighty shake q meal to help opmtimize kcal and protein intake. P: 1. Cut up meats, extra gravy and sauce, no rice sub mashed potatoes and gravy. 2. Mighty shakes q meal
[2017-01-21 13:47] VITALS: BP 116/50
--- NOTE | 2017-01-21 14:39 | NUR ---
VASOTEC DOSE GIVEN AND VS CHECKED AFTER GIVEN. HR RUNNING AT 55 AND BP HAS COME DOWN. PHONE CALL TO HOSPITALIST, DR. VILLATORO TO ASK IF HE WANTED TO CONTINUE WITH NITROPASTE TO CHEST WALL AND Q 6 HOURS VASOTEC AT THIS TIME. STATED HE WOULD CALL BACK. AWAIT CALL BACK. PATIENT IS STABLE AT THIS TIME AND IS CURRENTLY AT MRI. DTR, ANGELES, CAME IN TODAY TO FILL OUT MRI QUESTIONAIRRE FOR PATIENT PATIENT IS CURRENTLY UNABLE. PATIENT AMBULATED EARLIER WITH FWW AND 2 PERSON ASSIST. PATIENT LEANED BACK WHILE TAKING STEPS AND IT WAS DIFFICULT FOR HIM TO AMBULATE DUE TO CONFUSION.
[2017-01-21 18:00] VITALS: BP 124/63
--- NOTE | 2017-01-21 19:00 | NUR ---
A&OX2 BUT SOMETIMES FORGETFUL. LS CTA, HR REG AND BT ACTIVE. NO PAIN OR NAUSEA. UP IN CHAIR FOR DINNER AND TOLERATED WELL. VSS. MONEY MARKET CLERK IN W/ PT.
--- NOTE | 2017-01-21 19:11 | NUR ---
PT CONFUSED AND AGITATED. GETTING UP FROM BED AND PULLING AT IV AND VAZQUEZ. MD NOTIFIED, NEW MEDS ORDERED.
[2017-01-21] MEDS ORDERED: SIMVASTATIN40 MG (23:59)
--- NOTE | 2017-01-22 07:49 | Progress Note ---
Subjective General Note Date: 2016 Admission Date: January 12, 2017 Hospital Day: 2 PCP: Cesar Acuna Advanced Directive: No CODE Room: 205 81-year-old white male with a significant past medical history of glioblastoma multiforme, stroke, gout, hypercholesteremia, hypertension who presented to [facility] emergency department on the day of admission with confusion nonpurposeful spontaneous movements, involuntary movements. Lethargic. [facility] ER evaluation was consistent with edematous changes in the brain.. Secondary to the above, the patient was admitted by Dayo Oliveira M.D. for further evaluation and treatment. Subjective: Patient had a relatively calm night. Required 10 mg held overnight. Still however less restlessness, right unusual in evening. Eating well, sleeping during the day. No vomiting, no diarrhea. Patient requests None Constitutional Denies: Chills, Sweats. Physical Exam Vital Signs / I&Os Vital Signs Date Time Temp Pulse Resp B/P Pulse O2 O2 Flow FiO2 Ox Delivery Rate 01/22 0030 Room Air 01/21 1800 97.5 75 18 124/63 99 Room Air 01/21 1630 Room Air 01/21 1347 97.9 55 20 116/50 99 Room Air 0.0 01/21 1128 98.6 75 20 129/46 98 Room Air 0.0 I&O 01/21 0800 /05 1600 06 0000 Intake Total 863 1200 600 Output Total 800 950 Balance 863 400 -350 General Appearance No acute distress (sleeping) HEENT EOMI Lungs Clear to auscultation Cardiovascular Regular rate and rhythm, Normal S1 and S2 Extremities No edema LAB Results Laboratory Tests 01/22 0537 Chemistry Plasma Sodium (136 - 145 mmol/L) 144 Plasma Potassium (3.5 - 5.1 mmol/L) 4.0 Plasma Chloride (98 - 107 mmol/L) 108 CO2 (Enzymatic) (21 - 32 mmol/L) 27 BUN (7 - 18 mg/dL) 25 Creatinine (0.6 - 1.3 mg/dL) 1.0 Est GFR ( Amer) (mL/min) >60 Est GFR (Non-Af Amer) (mL/min) >60 Glucose (70 - 110 mg/dL) 132 Plasma Calcium (8.5 - 10.1 mg/dL) 8.6 Hematology WBC (4.5 - 11.5 K/uL) 13.0 RBC (4.50 - 5.90 M/uL) 4.29 Hgb (13.5 - 17.5 gm/dL) 13.3 Hct (41.0 - 53.0 %) 39.1 MCV (80 - 100 fL) 91 MCH (26 - 34 pg) 31 RDW (11.6 - 14.8 %) 13.6 Neut % (Auto) (50 - 75 %) 90.6 Lymph % (Auto) (25 - 40 %) 3.4 [place] % (Auto) (3 - 14 %) 5.9 Eos % (Auto) (0 - 4 %) 0 Baso % (Auto) (0 - 2 %) 0.1 Plt Count, EDTA (150 - 400 K/uL) 118 PUBS MCHC (31 - 37 g/dL) [address] head 09/15/2016 1. Left parietal craniotomy with no evidence of tumor recurrence 2. Mild atrophy with moderate white matter chronic ischemic changes and probable post radiation changes.-- Assessment and Plan Problem List 1. Traumatic cerebral edema without loss of consciousness Plan Traumatic cervical edema. Currently on dexamethasone. Continue the same dosage. No changes. 2. Glioblastoma Plan History consistent with glioblastoma multiforme. Monitor blood sugars, blood pressure while on dexamethasone 3. Altered mental status, unspecified Plan Behavioral concerns with this mental status change. May consider continued second-generation antipsychotic. Or Continue with the Haldol as needed at night. 4. HTN (hypertension) Plan Monitor blood pressure Current status: Fair, unstable Anticipated discharge date: 2-3 days Anticipated discharge placement: Likely home Patient care time: Time spent in chart review, patient interview, physical exam, CPOE, and care documentation: 25 minutes Visit to patient today: 1 Complexity of care: Early high Initial patient evaluation: Emergency department DVT prophylaxis: Mechanical anticoagulant E&M Codes Rounding: Inpt-Moderate/[id number]
--- NOTE | 2017-01-22 09:37 | NUR ---
PT IS FINALLY RESTING COMFORTABLY AFTER BEING AGITATED THIS MORNING. SITTER AT BEDSIDE, WHITEBOARD UPDATED, SAFETY PRECAUTIONS IN PLACE, WCTM.
--- NOTE | 2017-01-22 11:44 | NUR ---
PT HAS BEEN RESTING COMFORTABLY MOST OF THE MORNING, OCCASIONALLY AGITATED AND FRUSTRATED THAT STAFF WILL NOT LET HIM GET UP TO AMBULATE D/T HIGH FALLS RISK. PT IS A/0 X4 BUT IS INTERMITTENTLY HALLUCINATING, REACHING FOR THINGS THROUGH THE AIR. PT CAN BE IMPULSIVE, TRIES TO GET HIMSELF UP FROM CHAIR OR OOB, SITTER AT BEDSIDE AT ALL TIMES.
--- NOTE | 2017-01-22 12:11 | NUR ---
ACCUCHECK 152 PREPRANDIAL TO LUNCH.
--- NOTE | 2017-01-22 14:35 | NUR ---
PT RESTING IN BED, RELIEVED SITTER FOR A TIME, NEW SITTER AT BEDSIDE, COMPLETED BEDSIDE REPORT, PT APPEARS COMFORTABLE, NO APPARENT NEEDS, VISITOR NOW AT BEDSIDE.
--- NOTE | 2017-01-22 18:01 | NUR ---
PT'S CATHETER CAME DETACHED FROM DRAINAGE BAG AND CLOSED SYSTEM WAS COMPROMISED. NEW VAZQUEZ PLACED, PT TOLERATED WELL, SOME BLOODY URINE NOTED, SITTER STILL AT BEDSIDE.
[2017-01-22 18:13] VITALS: BP 148/83
--- NOTE | 2017-01-22 18:38 | NUR ---
END SHIFT NOTE: PT HAS BEEN QUITE COOPERATIVE AND COMFORTABLE DURING SHIFT. OCCASIONALLY AGITATED AND CONFUSED, HAS EPISODES OF CLARITY WHERE HE IS A/O. PT IS EATING WELL, VAZQUEZ REINSERTED FOR ONGOING URINARY RETENTION ISSUES, SITTER AT BEDSIDE FOR SAFETY PURPOSES. LINE OF SIGHT WITH NURSE'S STATION, FREQUENT SAFETY CHECKS BEING PERFORMED.
--- NOTE | 2017-01-23 01:12 | NUR ---
PT A&O X2 WITH FREQUENT EPISODES OF INCREASED CONFUSION. COOPERATIVE DURING CARE. STAFF IN ROOM CONTINUALLY. DENIES PAIN. IN BED ENTIRE SHIFT, STATES HE IS WARM AND COMFORTABLE. IV ACCESS IN R FA IN PLACE AND PATENT, WRAPPED WITH COBAN, BLOOD UNDER TRANSPARENT DRESSING, NO SX OF COMPLICATION. DRESSING NOT CHANGED R/T RISK OF DISPLACING CANNULA. LS CTA, ON RA. BT PRESENT ALL QUADS. VSS.
[2017-01-23 06:07] VITALS: BP 150/74
--- NOTE | 2017-01-23 06:45 | Progress Note ---
Subjective General Note Date: January 23, 2017 Admission Date: January 20, 2017 Hospital Day: 3 PCP: Cesar Acuna Advanced Directive: No CODE Room: 205 81-year-old white male with a significant past medical history of glioblastoma multiforme, stroke, gout, hypercholesteremia, hypertension who presented to [facility] emergency department on the day of admission with confusion nonpurposeful spontaneous movements, involuntary movements. Lethargic. [facility] ER evaluation was consistent with edematous changes in the brain.. Secondary to the above, the patient was admitted by Dayo Oliveira M.D. for further evaluation and treatment. Subjective: Patient had a better night. Patient seems to be come more comfortable. Patient is interacting more regularly. Patient is scheduled for infusions next week. Unable to discuss the details with POA daughter. We'll plan on giving her a call in the morning. Patient requests None Physical Exam Vital Signs / I&Os Vital Signs Date Time Temp Pulse Resp B/P Pulse O2 O2 Flow FiO2 Ox Delivery Rate 01/23 0607 97.5 58 18 150/74 97 Room Air 0.0 01/22 2307 Room Air 01/22 1813 97.9 59 22 148/83 97 Room Air /06 1122 Room Air I&O / 0800 05/06 1600 05/07 0000 Intake Total 160 840 240 Output Total 2024 400 700 Balance -1865 440 -460 General Appearance Cooperative, No acute distress HEENT EOMI Lungs Clear to auscultation Cardiovascular Normal S1 and S2 Abdomen No tenderness, No guarding Assessment and Plan Problem List 1. Traumatic cerebral edema without loss of consciousness Plan Continue with the digoxin prednisone at 4 mg IV. Discussed the options of care with neurosurgery. Patient is scheduled for treatment for the glioblastoma for an infusion in 2 days. May considered discharged home so that he can attend this. 2. Glioblastoma Plan History of glioblastoma, followed by neurosurgery and oncology. 3. Altered mental status, unspecified Plan Mental status changes secondary to neural structure compression. Patient now on day 3-4 of high-dose dexamethasone. 4. HTN (hypertension) Plan Continue with the lisinopril 10 mg daily in addition will add back the amlodipine 10 mg daily. Blood pressure goal is to maintain goal of 135/85. Current status: Fair, stable Anticipated discharge date: 2-3 days Anticipated discharge placement: Likely home Patient care time: Time spent in chart review, patient interview, physical exam, CPOE, and care documentation: 25 minutes Visit to patient today: 1 Complexity of care: Moderate Initial patient evaluation: Emergency department DVT prophylaxis: Mechanical anticoagulant E&M Codes Rounding: Inpt-Moderate/52660
--- NOTE | 2017-01-23 08:03 | NUR ---
PATIENT RESTING THIS BED THIS AM AND UP TO CHAIR FOR BREAKFAST. SITTER IN ROOM WITH PATIENT AT THIS TIME DUE TO RESTLESSNESS. SEE SHIFT ASSESSMENT FOR FURTHER DETAILS.
--- NOTE | 2017-01-23 09:07 | NUR ---
PATIENT MORE STABLE AMBULATING IN HALLS. AMBULATED WITH SBA AND FWW. ABLE TO AMBULATE W/O PROBLEMS.
[2017-01-23 10:25] VITALS: BP 143/77
[2017-01-23 14:59] VITALS: BP 141/68
[2017-01-23 18:29] VITALS: BP 142/66
[2017-01-24 02:29] VITALS: BP 139/70
--- NOTE | 2017-01-24 05:41 | NUR ---
PT A&O X2 EARLY IN SHIFT WITH MODERATE CONFUSION; LATE IN SHIFT CONFUSION INCREASED BUT STILL COOPERATIVE WITH NURSING CARE. DENIES PAIN. VAZQUEZ CATHETER IN PLACE AND DRAINING CLEAR YELLOW URINE. IV IN RAC WITH BLOOD UNDER DRESSING AND LEAKY WHEN FLUSHED WITH ARM BENT, OK WHEN PT HELD ARM STRAIGHT. ATTEMPTED DRESSING CHANGE AND FOUND CANNULA HAD MOSTLY PULLED OUT SO IT WAS REMOVED AND ANOTHER IV STARTED IN R FA ON FIRST ATTEMPT, FLUSHED EASILY. PT TOLERATED PROCEDURE WELL. STAFF IN ROOM 1:1 ENTIRE SHIFT WITH ONLY SHORT PERIOD OF RESTLESSNESS. VSS.
[2017-01-24 06:08] VITALS: BP 147/62
--- NOTE | 2017-01-24 07:06 | Progress Note ---
Subjective General Note Date: January 24, 2017 Admission Date: January 20, 2017 Hospital Day: 4 PCP: Cesar Acuna Advanced Directive: No CODE Room: 206 81-year-old white male with a significant past medical history of glioblastoma multiforme, stroke, gout, hypercholesteremia, hypertension who presented to [facility] emergency department on the day of admission with confusion nonpurposeful spontaneous movements, involuntary movements. Lethargic. [facility] ER evaluation was consistent with edematous changes in the brain.. Secondary to the above, the patient was admitted by Dayo Oliveira M.D. for further evaluation and treatment. Subjective: Patient is sitting talking. He has some minor hallucinations. Patient thinks there is an animal in the room. She is regarding certain things he said. Discussion with daughter this morning. He is scheduled for an infusion at the [facility]. Discussed the options of having Dr. stafford Reviewed and recommended patient be possibly discharged to short-term nursing care facility. Daughter is amenable to this. Otherwise she may have difficulty managing him at home. Patient requests Physical Exam Vital Signs / I&Os Vital Signs Date Time Temp Pulse Resp B/P Pulse O2 O2 Flow FiO2 Ox Delivery Rate 01/24 0608 98.2 62 18 147/62 98 Room Air 01/24 0232 Room Air 01/24 0229 98.2 65 14 139/70 98 Room Air 01/23 1829 97.7 61 12 142/66 99 Room Air / 1459 97.5 63 12 141/68 99 Room Air 01/23 1025 98.1 59 18 143/77 95 Room Air 01/23 0804 97 I&O 01/23 0800 05/07 1600 /08 0000 Intake Total 670 460 Output Total 350 350 Balance 320 110 General Appearance Cooperative, No acute distress HEENT EOMI Lungs Clear to auscultation Neck Supple Cardiovascular Regular rate and rhythm Abdomen Soft, No tenderness Psych/Mental Status times of hallucination LAB Results Laboratory Tests 01/24 0551 Chemistry Plasma Sodium (136 - 145 mmol/L) 143 Plasma Potassium (3.5 - 5.1 mmol/L) 4.0 Plasma Chloride (98 - 107 mmol/L) 107 CO2 (Enzymatic) (21 - 32 mmol/L) 27 BUN (7 - 18 mg/dL) 38 Creatinine (0.6 - 1.3 mg/dL) 1.0 Est GFR ( Amer) (mL/min) >60 Est GFR (Non-Af Amer) (mL/min) >60 Glucose (70 - 110 mg/dL) 112 Plasma Calcium (8.5 - 10.1 mg/dL) 8.2 Total Bilirubin (0.0 - 1.0 mg/dL) 0.8 AST (15 - 37 U/L) 24 ALT (12 - 78 U/L) 35 Alkaline Phosphatase (46 - 116 U/L) 77 Total Protein (6.4 - 8.2 g/dL) 6.0 Albumin (3.3 - 5.0 g/dL) 3.1 Hematology WBC (4.5 - 11.5 K/uL) 12.0 RBC (4.50 - 5.90 M/uL) 4.48 Hgb (13.5 - 17.5 gm/dL) 13.8 Hct (41.0 - 53.0 %) 40.9 MCV (80 - 100 fL) 91 MCH (26 - 34 pg) 31 RDW (11.6 - 14.8 %) 13.5 Neut % (Auto) (50 - 75 %) 92.3 Lymph % (Auto) (25 - 40 %) 2.3 Granite % (Auto) (3 - 14 %) 5.4 Eos % (Auto) (0 - 4 %) 0 Baso % (Auto) (0 - 2 %) 0 Plt Count, EDTA (150 - 400 K/uL) 130 PUBS MCHC (31 - 37 g/dL) 34 Assessment and Plan Problem List 1. Traumatic cerebral edema without loss of consciousness Plan Patient currently on dexamethasone 4 mg IV every 6 hours. We will twisting frame changer to by mouth 4 mg every 8 hours. Begin tapering the Dexamethasone. : Discussed the concerns with Dr. Carranza discharge nurse. There is mention that Dr. Carranza is out of town and most of the concerns of being handled by his partner. Patient was scheduled to have an infusion tomorrow. Patient however they did cancel that and reschedule. Patient is scheduled to be discharged hopefully to a [facility] tomorrow. It would be difficult to child and challenging to discharge to his home or to care Center at this time. Patient is not yet able to stand and walk on his own K take care of his own basic needs. Changes in mentation are noted. Seems to be hallucinating at times. 2. Glioblastoma Plan Glioblastoma multiform and related care of neuro oncology . 3. Altered mental status, unspecified Plan Waxing and waning mental status. Significant improvement since admission. We' ll taper the dexamethasone. 4. HTN (hypertension) Plan Blood pressure better controlled on the amlodipine 10 mg daily. Continue to monitor and follow. Blood pressure elevation secondary to high-dose steroid. 5. Constipation Plan Starting MiraLAX on a consistent basis give 17 g 3 times a day titrate up or down for a loose but well-formed stool. Current status: Anticipated discharge date: 2-3 days Anticipated discharge placement: Likely home Patient care time: Time spent in chart review, patient interview, physical exam, CPOE, and care documentation: 35 minutes Visit to patient today: Complexity of care: Initial patient evaluation: Emergency department DVT prophylaxis: Mechanical anticoagulant E&M Codes Rounding: Inpt-High/32907
--- NOTE | 2017-01-24 07:06 | Progress Note ---
Subjective General Note Date: January 24, 2017 Admission Date: January 20, 2017 Hospital Day: 4 PCP: Cesar Acuna Advanced Directive: No CODE Room: 206 81-year-old white male with a significant past medical history of glioblastoma multiforme, stroke, gout, hypercholesteremia, hypertension who presented to [facility] emergency department on the day of admission with confusion nonpurposeful spontaneous movements, involuntary movements. Lethargic. [facility] ER evaluation was consistent with edematous changes in the brain.. Secondary to the above, the patient was admitted by Dayo Oliveira M.D. for further evaluation and treatment. Subjective: Patient is sitting talking. He has some minor hallucinations. Patient thinks there is an animal in the room. She is regarding certain things he said. Discussion with daughter this morning. He is scheduled for an infusion at the [facility]. Discussed the options of having Dr. stafford Reviewed and recommended patient be possibly discharged to short-term nursing care facility. Daughter is amenable to this. Otherwise she may have difficulty managing him at home. Patient requests Physical Exam Vital Signs / I&Os Vital Signs Date Time Temp Pulse Resp B/P Pulse O2 O2 Flow FiO2 Ox Delivery Rate 01/24 0608 98.2 62 18 147/62 98 Room Air 01/24 0232 Room Air 01/24 0229 98.2 65 14 139/70 98 Room Air 01/23 1829 97.7 61 12 142/66 99 Room Air / 1459 97.5 63 12 141/68 99 Room Air 01/23 1025 98.1 59 18 143/77 95 Room Air 01/23 0804 97 I&O 01/23 0800 05/07 1600 /08 0000 Intake Total 670 460 Output Total 350 350 Balance 320 110 General Appearance Cooperative, No acute distress HEENT EOMI Lungs Clear to auscultation Neck Supple Cardiovascular Regular rate and rhythm Abdomen Soft, No tenderness Psych/Mental Status times of hallucination LAB Results Laboratory Tests 01/24 0551 Chemistry Plasma Sodium (136 - 145 mmol/L) 143 Plasma Potassium (3.5 - 5.1 mmol/L) 4.0 Plasma Chloride (98 - 107 mmol/L) 107 CO2 (Enzymatic) (21 - 32 mmol/L) 27 BUN (7 - 18 mg/dL) 38 Creatinine (0.6 - 1.3 mg/dL) 1.0 Est GFR ( Amer) (mL/min) >60 Est GFR (Non-Af Amer) (mL/min) >60 Glucose (70 - 110 mg/dL) 112 Plasma Calcium (8.5 - 10.1 mg/dL) 8.2 Total Bilirubin (0.0 - 1.0 mg/dL) 0.8 AST (15 - 37 U/L) 24 ALT (12 - 78 U/L) 35 Alkaline Phosphatase (46 - 116 U/L) 77 Total Protein (6.4 - 8.2 g/dL) 6.0 Albumin (3.3 - 5.0 g/dL) 3.1 Hematology WBC (4.5 - 11.5 K/uL) 12.0 RBC (4.50 - 5.90 M/uL) 4.48 Hgb (13.5 - 17.5 gm/dL) 13.8 Hct (41.0 - 53.0 %) 40.9 MCV (80 - 100 fL) 91 MCH (26 - 34 pg) 31 RDW (11.6 - 14.8 %) 13.5 Neut % (Auto) (50 - 75 %) 92.3 Lymph % (Auto) (25 - 40 %) 2.3 [place] % (Auto) (3 - 14 %) 5.4 Eos % (Auto) (0 - 4 %) 0 Baso % (Auto) (0 - 2 %) 0 Plt Count, EDTA (150 - 400 K/uL) 130 PUBS MCHC (31 - 37 g/dL) 34 Assessment and Plan Problem List 1. Traumatic cerebral edema without loss of consciousness Plan Patient currently on dexamethasone 4 mg IV every 6 hours. We will pipe changer to by mouth 4 mg every 8 hours. Begin tapering the Dexamethasone. : Discussed the concerns with Dr. Carranza discharge nurse. There is mention that Dr. Carranza is out of town and most of the concerns of being handled by his partner. Patient was scheduled to have an infusion tomorrow. Patient however they did cancel that and reschedule. Patient is scheduled to be discharged hopefully to a [facility] tomorrow. It would be difficult to child and challenging to discharge to his home or to care Center at this time. Patient is not yet able to stand and walk on his own K take care of his own basic needs. Changes in mentation are noted. Seems to be hallucinating at times. 2. Glioblastoma Plan Glioblastoma multiform and related care of neuro oncology . 3. Altered mental status, unspecified Plan Waxing and waning mental status. Significant improvement since admission. We' ll taper the dexamethasone. 4. HTN (hypertension) Plan Blood pressure better controlled on the amlodipine 10 mg daily. Continue to monitor and follow. Blood pressure elevation secondary to high-dose steroid. 5. Constipation Plan Starting MiraLAX on a consistent basis give 17 g 3 times a day titrate up or down for a loose but well-formed stool. Current status: Anticipated discharge date: 2-3 days Anticipated discharge placement: Likely home Patient care time: Time spent in chart review, patient interview, physical exam, CPOE, and care documentation: 35 minutes Visit to patient today: Complexity of care: Initial patient evaluation: Emergency department DVT prophylaxis: Mechanical anticoagulant E&M Codes Rounding: Inpt-High/50451
--- NOTE | 2017-01-24 07:59 | NUR ---
PATIENT UP TO CHAIR FOR BREAKFAST. A AND O X 4 BUT ALSO FORGETFUL AND ACCORDING TO NOC SHIFT AND 1:1 DIRECTOR OF OFFICIATING IN ROOM PATIENT WAS HAVING HALLUCINATIONS AND HAS BEEN HAVING THEM AT TIMES. SEE SHIFT ASSESSMENT FOR FURTHER DETAILS.
--- NOTE | 2017-01-24 08:54 | NUR ---
in to see patient, assist with sitting up, WAFFLE mattress in place on bed and chair, disposable incontinent pad in place. Adhesive bandage removed from right elbow, abrasion almost closed, no sign of infection, wound base red. Cleansed with NS, Bacitracin applied, covered with adhesive bandage, will continue to monitor.
--- NOTE | 2017-01-24 10:06 | NUR ---
pt supine in bed upon entering the room. pt was agreeable to skilled PT treatment. pt completed supine to sit SBA with HOB at 30 degrees. pt completed sit to stand using a FWW. pt ambulated 300ft CGA->Min A for walker direction. pt tends to list to the right. pt went back to bed after ambulation with Min A sit to supine secondary to confusion as to directions given. pt's mobility has improved but will need SNF with PT as pt is not safe to be I with mobility at this time.
[2017-01-24 10:47] VITALS: BP 158/77
--- NOTE | 2017-01-24 10:48 | NUR ---
SPOKE WITH DTKenton CARDOZA WHO BROUGHT PATIENT'S ELECTRIC SHAVER IN. DTR STATED PATIENT IS A AND O X 4 AND INDEPENDENT AT BASELINE. STATES THAT AT THE AL FACILITY THEY ONLY GIVE HIM HIS MEDS AND HE SHOWERS DAILY, GETS HIMSELF TO HIS MEALS INDEPENDENTLY, DOES ALL ADL'S HIMSELF. STATES THAT HE HAS HAD ONE BOUT OF THIS CONFUSION IN A YEAR AND A HALF SINCE DIAGNOSIS OF GLIOBLASTOMA.
--- NOTE | 2017-01-24 11:44 | NUR ---
ORDER TO DC VAZQUEZ CATHETER, DC'D VAZQUEZ INTACT. WILL MONITOR URINE OUTPUT CLOSELY.
[2017-01-24 14:25] VITALS: BP 164/78
--- NOTE | 2017-01-24 14:29 | NUR ---
PATIENT HAS BEEN PERSEVERATING ON DIFFERENT THINGS TODAY THAT DON'T PERTAIN TO CURRENT SITUATION. HE HAS BEEN ASKING FOR A PLUG IN CORD OVER AND OVER AGAIN. HE GOT UP IMPULSIVELY AND QUICKLY AND WAS AMBULATED BY 2 PERSON ASSIST FOR SAFETY AND REFUSED TO USE A WALKER. HE WAS STEADY ON HIS FEET. HE WAS VERY DISTRACTABLE DURING WALK AND WANTED TO GO INTO EACH ROOM THINKING IT WAS HIS. RESTED IN BED AND IN CHAIR MOST OF DAY. CURRENTLY DOES NOT HAVE 1:1 WITH HIM IN ROOM. SW STATES HE WILL DC HOME WITH DTR IN THE AM AND THEN GO TO [facility] INFUSION.
--- NOTE | 2017-01-24 16:38 | NUR ---
NUTRITION FOLLOW UP NOTE: Pt with confusion, needing 1:1 care over the weekend per nsg. Total assist with meals, taking ~50-100% at meals. Does accept BOOST and snacks such as ice cream. Rec obtain weight if possible....last wt admission 62.5 kg. No weight loss desired. RD to follow up prn/protocol.
[2017-01-24 20:09] VITALS: BP 170/99
[2017-01-24 22:20] VITALS: BP 157/90
--- NOTE | 2017-01-24 23:21 | NUR ---
PATIENT RESTING IN BED NOW. IN NO DISTRESS CURRENTLY. WAS BLADDER SCANED EARLIER HAD LARGE AMOUNT 561. GOT ORDER FROM MD TO STRAIGHT CATH HIM. GOT 500 PLUS OF URINE OUT. PATIENT BECAME MUCH LESS AGITATED AFTER EMPTYING BLADDER.
--- NOTE | 2017-01-24 23:51 | NUR ---
BEEN DOING NEURO CHECKS TODAY EVERY HOUR. NO CHANGE TODAY.
--- NOTE | 2017-01-25 00:27 | NUR ---
PT. IS RESTING IN BED AT THIS TIME, ALERT AND COOPERATIVE DURING CARE. DISORIENTED TO WHERE HE IS, THOUGH HE KNOWS HE IS IN [place]. ORIENTED TO SELF. RAMBLES ABOUT RANDOM THINGS. DENIES PAIN. SITTER AT BEDISDE AT ALL TIMES DUE TO IMPUSIVITY. PT. IS CALM AT THIS TIME. TM.
[2017-01-25 03:04] VITALS: BP 157/90
--- NOTE | 2017-01-25 03:06 | NUR ---
PT. IS HALLUCINATING, REPEATEDLY STATING THAT HE SEES A "CROSS" ON THE GROUND, THEN QUICKLY BECAME FIXATED THAT HE SAW A "HURST" ON THE GROUND WHICH IS NOT THERE AND WAS ATTEMPTING TO GET OOB TO GET IT. BECAME VERY AGITATED. ATIVAN ADMINISTERED. A BIT CALMER NOW. WCTM.
[2017-01-25 06:13] VITALS: BP 173/87
--- NOTE | 2017-01-25 07:13 | NUR ---
PT. HAS HAD SITTER IN ROOM THROUGHOUT THE NIGHT. BECAME AGITATED AND GOT OOB, STARTED TO HIT AND SHOVE STAFF. WHEN HE GOT BACK INTO BED, HE TRIED TO THEN GET OOB AGAIN AND WAS SWINGING AT STAFF/PUSHING STAFF AND YELLING. NOTIFIED DR. VILLATORO, RECEIVED ORDER FOR 1 MG HALDOL. RN FISHER TRAP ADMINISTERED HALDOL. WAS INEFFECTIVE, PT. CONTINUED TO TRY AND HIT, PUSH, AND KICK STAFF. NOTIFIED DR. VILLATORO, RECEIVED ORDER FOR VIOLENT RESTRAINTS AND ATIVAN. APPLIED RESTRAINTS AT 0520, REMOVED RESTRAINTS AT 0600 SINCE PT. BECAME CALM AND FELL ASLEEP. NOTIFIED OF RESTRAINT REMOVAL, AND HARD COPY OF RESTRAINT ORDER WAS SIGNED BY MD. JARRETT.
--- NOTE | 2017-01-25 07:16 | Progress Note ---
Subjective General Note Date: January 25, 2017 Admission Date: January 20, 2017 Hospital Day: 5 PCP: Cesar Acuna Advanced Directive: No CODE Room: 206 81-year-old white male with a significant past medical history of glioblastoma multiforme, stroke, gout, hypercholesteremia, hypertension who presented to [facility] emergency department on the day of admission with confusion nonpurposeful spontaneous movements, involuntary movements. Lethargic. [facility] ER evaluation was consistent with edematous changes in the brain.. Secondary to the above, the patient was admitted by Dayo Oliveira M.D. for further evaluation and treatment. Subjective: Patient and more intolerance to the hospital stay last time. Patient had hallucinations and was combative and violent during the evening. Patient was given Haldol line maintainer section. Patient has been sleeping ever since. The infusion has been postponed. Patient requests None Physical Exam Vital Signs / I&Os Vital Signs Date Time Temp Pulse Resp B/P Pulse O2 O2 Flow FiO2 Ox Delivery Rate 01/25 0613 97.5 70 18 173/87 97 Room Air 01/25 0304 98.1 70 22 157/90 97 Room Air 0.0 01/25 0022 0.0 / 2220 97.5 72 22 157/90 97 Room Air / 2009 97.5 70 20 170/99 98 Room Air / 1425 97.9 82 20 164/78 98 Room Air / 1047 98.1 66 20 158/77 99 Room Air 0.0 / 0800 97 I&O / 0800 05/08 1600 05/09 0000 Intake Total 315 845 240 Output Total 375 725 Balance -60 845 -485 General Appearance No acute distress, somnolent Lungs Clear to auscultation Cardiovascular Normal S1 and S2 Extremities No cyanosis Neurological No lateralizing signs Psych/Mental Status Confused LAB Results Laboratory Tests 01/25 0600 Coagulation INR (0.8 - 1.2) 0.9 Assessment and Plan Problem List 1. Traumatic cerebral edema without loss of consciousness Plan Tapering off on the dexamethasone. Continue with the 4 mg Every 6 hours by mouth. Continue with the taper. 2. HTN (hypertension) Plan Blood pressure elevated this is most likely secondary to steroid. Continue with the dual therapy for hypertension. 3. Glioblastoma Plan Discussed the issues with neuro-oncology. Patient scheduled for monoclonal clonal antibiotic therapy. Patient however will need to have this postponed. 4. Altered mental status, unspecified Plan Patient having waxing and waning mental status change. Attempt to avoid the first generation antipsychotic. Started single agent Seroquel today. We'll start on 25 mg twice a day. 5. Constipation Plan Continue with the bowel regimen Current status: Fair, unstable Anticipated discharge date: Anticipated discharge Anticipated discharge placement: Home with home care Patient care time: Time spent in chart review, patient interview, physical exam, CPOE, and care documentation: 25 minutes Visit to patient today: 2 Complexity of care: Mild Initial patient evaluation: Emergency department consultation DVT prophylaxis: Lovenox E&M Codes Rounding: Inpt-Moderate/06526
--- NOTE | 2017-01-25 07:16 | Progress Note ---
Subjective General Note Date: January 25, 2017 Admission Date: January 20, 2017 Hospital Day: 5 PCP: Cesar Acuna Advanced Directive: No CODE Room: 206 81-year-old white male with a significant past medical history of glioblastoma multiforme, stroke, gout, hypercholesteremia, hypertension who presented to [facility] emergency department on the day of admission with confusion nonpurposeful spontaneous movements, involuntary movements. Lethargic. [facility] ER evaluation was consistent with edematous changes in the brain.. Secondary to the above, the patient was admitted by Dayo Oliveira M.D. for further evaluation and treatment. Subjective: Patient and more intolerance to the hospital stay last time. Patient had hallucinations and was combative and violent during the evening. Patient was given Haldol director of early childhood education. Patient has been sleeping ever since. The infusion has been postponed. Patient requests None Physical Exam Vital Signs / I&Os Vital Signs Date Time Temp Pulse Resp B/P Pulse O2 O2 Flow FiO2 Ox Delivery Rate 01/25 0613 97.5 70 18 173/87 97 Room Air 01/25 0304 98.1 70 22 157/90 97 Room Air 0.0 01/25 0022 0.0 / 2220 97.5 72 22 157/90 97 Room Air / 2009 97.5 70 20 170/99 98 Room Air / 1425 97.9 82 20 164/78 98 Room Air / 1047 98.1 66 20 158/77 99 Room Air 0.0 / 0800 97 I&O / 0800 05/08 1600 05/09 0000 Intake Total 315 845 240 Output Total 375 725 Balance -60 845 -485 General Appearance No acute distress, somnolent Lungs Clear to auscultation Cardiovascular Normal S1 and S2 Extremities No cyanosis Neurological No lateralizing signs Psych/Mental Status Confused LAB Results Laboratory Tests 01/25 0600 Coagulation INR (0.8 - 1.2) 0.9 Assessment and Plan Problem List 1. Traumatic cerebral edema without loss of consciousness Plan Tapering off on the dexamethasone. Continue with the 4 mg Every 6 hours by mouth. Continue with the taper. 2. HTN (hypertension) Plan Blood pressure elevated this is most likely secondary to steroid. Continue with the dual therapy for hypertension. 3. Glioblastoma Plan Discussed the issues with neuro-oncology. Patient scheduled for monoclonal clonal antibiotic therapy. Patient however will need to have this postponed. 4. Altered mental status, unspecified Plan Patient having waxing and waning mental status change. Attempt to avoid the first generation antipsychotic. Started single agent Seroquel today. We'll start on 25 mg twice a day. 5. Constipation Plan Continue with the bowel regimen Current status: Fair, unstable Anticipated discharge date: Anticipated discharge Anticipated discharge placement: Home with home care Patient care time: Time spent in chart review, patient interview, physical exam, CPOE, and care documentation: 25 minutes Visit to patient today: 2 Complexity of care: Mild Initial patient evaluation: Emergency department consultation DVT prophylaxis: Lovenox E&M Codes Rounding: Inpt-Moderate/81471
[2017-01-25 10:00] VITALS: BP 177/89
[2017-01-25 14:44] VITALS: BP 163/84
--- NOTE | 2017-01-25 18:22 | DIAGNOSTIC IMAGING REPORT ---
PROCEDURE: MR BRAIN W/WO CONTRAST INDICATION: Glipblemtoma, acute symptoms TECHNIQUE: T1 sagittal and T2 coronal images. T1, T2, FLAIR, gradient, and diffusion axial images of the brain. Following 10 ml of intravenous gadolinium, FAT-SAT T1 sagittal, axial and coronal images were obtained. COMPARISON: None. FINDINGS: Rapid sequences obtained due to patient motion. Left parietal craniotomy without adjacent enhancement. Moderate cortical atrophy with enlargement of the ventricular system. Extensive white matter chronic ischemic changes. Posterior medial left temporal and occipital lobe encephalomalacia. Small right basal ganglia lacunar infarct. There is a 2.1 x 1.5 cm lesion in the right medial parietal lobe medially with increased T1 signal peripherally, increased signal on the DWI sequence and minimal peripheral enhancement. Hypoplastic left vertebral artery. Normal vascular flow voids. Normal orbits. Minor ethmoid sinus disease. Mastoids are clear. IMPRESSION: 1. 2.1 x 1.5 cm mass in the medial right parietal lobe with diffusion restriction, increased T1 signal peripherally and minimal peripheral enhancement. Findings suggest a mass with minor peripheral hemorrhage. 2. Left parietal craniotomy 3. Moderate atrophy and white matter chronic ischemic changes with small right basal ganglia lacunar infarct 4. Left temporal occipital encephalomalacia
--- NOTE | 2017-01-25 18:25 | NUR ---
BLADDER SCAN SHOWS 999+ CC URINE IN BLADDER. TALKED TO DR VILLATORO AND ORDERS RECEIVED.
[2017-01-25 19:23] VITALS: BP 150/81
[2017-01-26 05:48] VITALS: BP 158/78
--- NOTE | 2017-01-26 06:21 | Progress Note ---
Subjective General Note Date: January 25, 2017 Admission Date: January 20, 2017 Hospital Day: 6 PCP: Cesar Acuna Advanced Directive: No CODE Room: 206 81-year-old white male with a significant past medical history of glioblastoma multiforme, stroke, gout, hypercholesteremia, hypertension who presented to [facility] emergency department on the day of admission with confusion nonpurposeful spontaneous movements, involuntary movements. Lethargic. [facility] ER evaluation was consistent with edematous changes in the brain.. Secondary to the above, the patient was admitted by Dayo Oliveira M.D. for further evaluation and treatment. Subjective: Patient was seen sitting in the chair this morning. Patient had no overnight issues. Patient tolerated medication. Patient currently on a dexamethasone taper. Patient reports that there is no concerns and he is feeling well today Patient requests Physical Exam Vital Signs / I&Os Vital Signs Date Time Temp Pulse Resp B/P Pulse O2 O2 Flow FiO2 Ox Delivery Rate 01/26 0548 98.2 62 22 158/78 96 Room Air 01/25 1923 98.1 66 22 150/81 98 Room Air 01/25 1444 97.7 68 18 163/84 100 Room Air 01/25 1000 97.9 60 18 177/89 98 Room Air I&O 01/25 0800 / 1600 01/26 0000 Intake Total 200 340 870 Output Total 145 835 2267 Balance -371 -155 -220 General Appearance Oriented X3 HEENT EOMI Neck Supple Abdomen No tenderness Extremities No edema, Normal pulses Psych/Mental Status Confused Assessment and Plan Problem List 1. Traumatic cerebral edema without loss of consciousness Plan Patient stabilizing edema in the brain. Continue with the dexamethasone taper. Patient will be discharged with a steroid taper. Hold the Dex to 4 mg po q6 hours. 2. Altered mental status, unspecified Plan Responded to the Seroquel. Continue with the same dosage. 3. Glioblastoma Plan Patient is followed by neuro-on[facility]; patient has an monoclonal antibody infusion that has been postponed. 4. HTN (hypertension) Plan Blood pressure is elevated. Patient on steroid therapy. Increase lisinopril to 40 mg daily. Continue with the same dose of amlodipine. 5. Constipation Plan Continue with the chhaya regimen; notalbe improvement. Current status: Fair, Anticipated discharge date: Anticipated discharge 1-2 days; Home health Anticipated discharge placement: Home with home care Patient care time: Time spent in chart review, patient interview, physical exam, CPOE, and care documentation: 25 minutes 25 Visit to patient today: 2 Complexity of care: mild to moderate. Initial patient evaluation: Emergency department consultation. DVT prophylaxis: Lovenox GI prophylaxis E&M Codes Rounding: Inpt-Moderate/89509
--- NOTE | 2017-01-26 06:21 | Progress Note ---
Subjective General Note Date: January 25, 2017 Admission Date: January 20, 2017 Hospital Day: 6 PCP: Cesar Acuna Advanced Directive: No CODE Room: 206 81-year-old white male with a significant past medical history of glioblastoma multiforme, stroke, gout, hypercholesteremia, hypertension who presented to [facility] emergency department on the day of admission with confusion nonpurposeful spontaneous movements, involuntary movements. Lethargic. [facility] ER evaluation was consistent with edematous changes in the brain.. Secondary to the above, the patient was admitted by Dayo Oliveira M.D. for further evaluation and treatment. Subjective: Patient was seen sitting in the chair this morning. Patient had no overnight issues. Patient tolerated medication. Patient currently on a dexamethasone taper. Patient reports that there is no concerns and he is feeling well today Patient requests Physical Exam Vital Signs / I&Os Vital Signs Date Time Temp Pulse Resp B/P Pulse O2 O2 Flow FiO2 Ox Delivery Rate 01/26 0548 98.2 62 22 158/78 96 Room Air 01/25 1923 98.1 66 22 150/81 98 Room Air 01/25 1444 97.7 68 18 163/84 100 Room Air 01/25 1000 97.9 60 18 177/89 98 Room Air I&O 01/25 0800 / 1600 01/26 0000 Intake Total 200 340 870 Output Total 978 788 3358 Balance -371 -155 -220 General Appearance Oriented X3 HEENT EOMI Neck Supple Abdomen No tenderness Extremities No edema, Normal pulses Psych/Mental Status Confused Assessment and Plan Problem List 1. Traumatic cerebral edema without loss of consciousness Plan Patient stabilizing edema in the brain. Continue with the dexamethasone taper. Patient will be discharged with a steroid taper. Hold the Dex to 4 mg po q6 hours. 2. Altered mental status, unspecified Plan Responded to the Seroquel. Continue with the same dosage. 3. Glioblastoma Plan Patient is followed by neuro-on[facility]; patient has an monoclonal antibody infusion that has been postponed. 4. HTN (hypertension) Plan Blood pressure is elevated. Patient on steroid therapy. Increase lisinopril to 40 mg daily. Continue with the same dose of amlodipine. 5. Constipation Plan Continue with the chhaya regimen; notalbe improvement. Current status: Fair, Anticipated discharge date: Anticipated discharge 1-2 days; Home health Anticipated discharge placement: Home with home care Patient care time: Time spent in chart review, patient interview, physical exam, CPOE, and care documentation: 25 minutes 25 Visit to patient today: 2 Complexity of care: mild to moderate. Initial patient evaluation: Emergency department consultation. DVT prophylaxis: Lovenox GI prophylaxis E&M Codes Rounding: Inpt-Moderate/26059
--- NOTE | 2017-01-26 06:25 | NUR ---
PT RESTING MOST OF THE EVENING WITH NO SIGNS OF AGITATION. HE WAS ABLE TO ANSWER SOME ORIENTATION QUESTIONS BUT STILL SHOWING SIGNS OF CONFUSION. DID DANNI ATTEMPT TO GET OUT OF BED AND WAS NOT COMBATIVE. ADRIA BLOOD NOTICED IN HIS CATHETER TUBING THIS AM. DR. VILLATORO NOTIFIED AND URINE ANALYSIS ORDERED.
[2017-01-26 10:06] VITALS: BP 139/61
--- NOTE | 2017-01-26 11:24 | NUR ---
pt unable to be seen d/t high census. Will ck bk 5-11. Continue to recommended 2-3 walks in the hallway per day.
--- NOTE | 2017-01-26 13:05 | NUR ---
NUTRITION FOLLOW UP NOTE: Pt po intake ~50-100% of meals, continues with total assist with meals, BOOST between meals as well. Wt today 60.8 kg wt on admit 62.5 kg ~1.7kg/3.74# wt loss. Continue mighty shakes and boost to help prevent wt loss. Per pt may likely d/c 1-[address] to continue to monitor nutrition indices and follow up prn/protocol.
--- NOTE | 2017-01-26 17:04 | NUR ---
At beginning of shift pt was very aggitated and confused. Stating need "go pee" explained that catheter was in place and pt stated "i am going to pee all over myself and make a mess" Pt eventually calmed. Continues to grab at catheter site. Return of confusion and aggitation. Haldol given. wctm.
[2017-01-26 18:00] VITALS: BP 159/88
[2017-01-26 22:06] VITALS: BP 138/69
[2017-01-27 02:16] VITALS: BP 144/66
[2017-01-27 06:03] VITALS: BP 133/72
--- NOTE | 2017-01-27 07:32 | Discharge Summary ---
Discharge Summary Report Admit Date 01/21/17 Discharge Date 01/27/17 Admission Diagnosis 1. Glioblastoma multiforme 2. Mental status changes 3. Hypertension 4. Hyperlipidemia 5. Gout Discharge Diagnosis 1. Glioblastoma multiforme 2. Mental status changes 3. Hypertension 4. Hyperlipidemia 5. Gout Brief History The patient is a 81-year-old white male with a significant past medical history of glioblastoma multiforme, stroke, gout, hypercholesteremia, hypertension who presented to [facility] emergency department on the day of admission with confusion/ mental status changes, nonpurposeful spontaneous movements, involuntary movements. [facility] ER evaluation was consistent with glioblastoma multiforme with associated edema. Secondary to the above, the patient was admitted by Dayo Olivarez M.D. for further evaluation and treatment. For other history present illness, past medical history, family history, social history, review of systems, and admission physical examination please see the patient's history and physical examination and ER visit note in the patient's medical record. Hospital Course The following problems and their management were noted during the patient's hospitalization: 1. Glioblastoma multiforme 2. Mental status changes 3. Hypertension 4. Hyperlipidemia 5. Gout Lab/Imaging Laboratory Tests 01/26 915 Chemistry Plasma Sodium (136 - 145 mmol/L) 138 Plasma Potassium (3.5 - 5.1 mmol/L) 4.1 Plasma Chloride (98 - 107 mmol/L) 102 CO2 (Enzymatic) (21 - 32 mmol/L) 23 BUN (7 - 18 mg/dL) 39 Creatinine (0.6 - 1.3 mg/dL) 1.1 Est GFR ( Amer) (mL/min) >60 Est GFR (Non-Af Amer) (mL/min) >60 Glucose (70 - 110 mg/dL) 218 Plasma Calcium (8.5 - 10.1 mg/dL) 8.0 Total Bilirubin (0.0 - 1.0 mg/dL) 1.3 AST (15 - 37 U/L) 27 ALT (12 - 78 U/L) 58 Alkaline Phosphatase (46 - 116 U/L) 76 Total Protein (6.4 - 8.2 g/dL) 6.0 Albumin (3.3 - 5.0 g/dL) 3.1 Hematology WBC (4.5 - 11.5 K/uL) 13.1 RBC (4.50 - 5.90 M/uL) 5.05 Hgb (13.5 - 17.5 gm/dL) 15.4 Hct (41.0 - 53.0 %) 46.8 MCV (80 - 100 fL) 93 MCH (26 - 34 pg) 31 RDW (11.6 - 14.8 %) 13.8 Neut % (Auto) (50 - 75 %) 94.8 Lymph % (Auto) (25 - 40 %) 2.3 [place] % (Auto) (3 - 14 %) 2.8 Eos % (Auto) (0 - 4 %) 0 Baso % (Auto) (0 - 2 %) 0.1 Plt Count, EDTA (150 - 400 K/uL) 142 PUBS MCHC (31 - 37 g/dL) 33 Discharge Instructions/Meds For other recommendations regarding discharge diet, activity, followup, and discharge medications please see the patient's discharge instructions. Discharge condition: Fair, improved Greater than 30 min. was spent in the patient's discharge preparation including discharge interview and physical examination, progress note, discharge instructions, and discharge summary The patient was interviewed and examined on the day of discharge.
--- NOTE | 2017-01-27 07:57 | NUR ---
PT. HAS BEEN RESTING THROUGHOUT THE NIGHT, THOUGH INTERMITENTLY BECOMING AGITATED. WALKING AROUND THE UNIT WITH TELEPHONE ADVICE NURSE SEEMED TO HELP CALM PT. PT. BECAME EXTREMELY AGITATED, ATIVAN ADMINISTERED. SOMEWHAT EFFECTIVE, BUT PT. WAS STILL RESTLESS. PT IS CURRENTLY RESTING AT THIS TIME. DENIES PAIN. NO CHANGE WITH NEURO CHECKS. SITTER WITH PT. THROUGHOUT SHIFT.
[2017-01-27 10:13] VITALS: BP 145/85
--- NOTE | 2017-01-27 11:03 | NUR ---
pt d/c'd. Hold PT
[2017-01-27 14:10] VITALS: BP 142/70
--- NOTE | 2017-01-27 14:38 | NUR ---
In to see patient and status of skin tear to right elbow, wound has greatly reduced and is almost closed, cleansed with NS, applied Hydrogel and bandaid, will continue to monitor. Report of abrasion to top of left wrist, small linear scab in place, no treatment needed as no redness, drainage noted.
--- NOTE | 2017-01-27 16:11 | NUR ---
PT DENIES PAIN ON THIS SHIFT, DOES NOT APPEAR AGITATED THROUGHOUT DAY, WALKING WITH 1 PERSON ASSIST WITHOUT DIFFICULTY, VAZQUEZ DRAINING CLEAR YELLOW URINE, DENIES CP/P OR SOB. BED IN LOW POSITION, BED ALARM ON. WCTM.
--- NOTE | 2017-01-27 17:16 | NUR ---
PT IS AWAKE AND ANSWERING QUESTIONS. DENIES SOB OR NAUSEA. C/0 PAIN IN CATHETER IN PENIS AREA. ATTEMPTED TO MOVE CATHETER FURTHER UP WITHOUT IMPROVEMENT. RADHA PECK AND MYSELF ATTEMPTED TO MOVE AGAIN AND PATIENT IS CALLING OUT WITH DISCOMFORT. URINE OUTPUT IS GOOD. RONEY CANNOT TAKE PATIENT DUE TO NEED OF SITTER. AWAITING DC INFO.
--- NOTE | 2017-01-27 17:23 | Progress Note ---
Subjective General Note Date: January 27, 2017 Admission Date: January 20, 2017 Hospital Day: 8 PCP: Cesar Acuna M.D. Advanced Directive: NO CODE Status: Inpatient, ACU Room: 206 Brief History: The patient is a 81-year-old white male with a significant past medical history of glioblastoma multiforme, stroke, gout, hypercholesteremia, hypertension who presented to [facility] emergency department on the day of admission with confusion/ mental status changes, nonpurposeful spontaneous movements, involuntary movements. [facility] ER evaluation was consistent with glioblastoma multiforme with associated edema. Secondary to the above, the patient was admitted by Dayo Olivarez M.D. for further evaluation and treatment. For other history present illness, past medical history, family history, social history, review of systems, and admission physical examination please see the patient's history and physical examination and ER visit note in the patient's medical record. Subjective: The patient states he is doing well today. No complaints. No agitation noted. Slightly restless. Patient requests: None Medications and Allergies Medications Current Medications Sig/Taylor Start time Last Medication Dose Route Stop Time Status Admin Magnesium Citrate 300 ML 1300 01/27 1300 AC PO 01/27 1800 Dexamethasone 4 MG QID 01/25 1400 AC 01/27 PO 1236 Quetiapine Fumarate 25 MG BID 01/25 1038 r 01/27 PO 1040 Acetaminophen 650 MG Q6H PRN 01/24 2300 AC PO Polyethylene Glycol 17 GM TID 01/24 2200 AC 01/27 PO 0619 Amlodipine Besylate 10 MG DAILY 01/23 0900 AC 01/27 PO 1040 Allopurinol 100 MG DAILY 01/21 0900 AC 01/27 PO 1039 Aspirin 325 MG DAILY 01/21 0900 AC 01/27 PO 1039 Colchicine 0.6 MG DAILY 01/21 0900 AC 01/27 PO 1040 Lorazepam 0.5 MG Q4H PRN 01/21 0100 AC 01/27 IV 0511 Heparin Sodium 5,000 UNITS BID 01/20 2100 AC 01/27 (Porcine) SC 1040 Lisinopril 40 MG DAILY 01/20 1830 AC 01/27 PO 1040 Atorvastatin Calcium 10 MG QPM 01/20 1800 AC 01/26 PO 1919 Allergies Coded Allergies: No Known Drug Allergy (08/04/15) Physical Exam Vital Signs / I&Os Vital Signs Date Time Temp Pulse Resp B/P Pulse O2 O2 Flow FiO2 Ox Delivery Rate 01/27 1610 Room Air 0.0 01/27 1410 97.3 63 18 142/70 97 Room Air 01/27 1013 97.3 63 18 145/85 97 Room Air 01/27 0603 97.5 59 18 133/72 94 Room Air 01/27 0216 98.1 59 20 144/66 96 Room Air 0.0 01/27 0100 0.0 01/26 2206 97.5 60 50 138/69 98 Room Air 01/26 1800 97.7 72 18 159/88 100 Room Air I&O 01/27 0000 01/26 1600 01/26 0800 Intake Total 1050 1200 Output Total 425 450 675 Balance 625 750 -675 General Appearance Alert, Cooperative, No acute distress Lungs Clear to auscultation, Normal air movement Cardiovascular Regular rate and rhythm, Normal S1 and S2 Abdomen Normal bowel sounds, Soft, No tenderness Extremities No cyanosis, No clubbing Psych/Mental Status Mood normal, Confused Assessment and Plan Problem List 1. Glioblastoma Plan -Status much improved. -Decreased agitation -Continue Decadron 4 mg every 6 hours -Patient ready to discharge to assisted living/detention facility 2. Altered mental status, unspecified Plan -See above 3. HTN (hypertension) Plan -Blood pressure well controlled -Low-salt diet -Monitor Current status: Fair, stable Anticipated discharge date: Anticipated discharge when placement arranged Anticipated discharge placement: Assisted living/detention facility Patient care time: Time spent in chart review, patient interview, physical exam, CPOE, and care documentation: 25 minutes Visit to patient today: 1 Complexity of care: Moderate E&M Codes Rounding: Inpt-Moderate/98583
--- NOTE | 2017-01-27 17:23 | Progress Note ---
Subjective General Note Date: January 27, 2017 Admission Date: January 20, 2017 Hospital Day: 8 PCP: Cesar Acuna M.D. Advanced Directive: NO CODE Status: Inpatient, ACU Room: 206 Brief History: The patient is a 81-year-old white male with a significant past medical history of glioblastoma multiforme, stroke, gout, hypercholesteremia, hypertension who presented to [facility] emergency department on the day of admission with confusion/ mental status changes, nonpurposeful spontaneous movements, involuntary movements. [facility] ER evaluation was consistent with glioblastoma multiforme with associated edema. Secondary to the above, the patient was admitted by Dayo Olivarez M.D. for further evaluation and treatment. For other history present illness, past medical history, family history, social history, review of systems, and admission physical examination please see the patient's history and physical examination and ER visit note in the patient's medical record. Subjective: The patient states he is doing well today. No complaints. No agitation noted. Slightly restless. Patient requests: None Medications and Allergies Medications Current Medications Sig/Taylor Start time Last Medication Dose Route Stop Time Status Admin Magnesium Citrate 300 ML 1300 01/27 1300 AC PO 01/27 1800 Dexamethasone 4 MG QID 01/25 1400 AC 01/27 PO 1236 Quetiapine Fumarate 25 MG BID 01/25 1038 r 01/27 PO 1040 Acetaminophen 650 MG Q6H PRN 01/24 2300 AC PO Polyethylene Glycol 17 GM TID 01/24 2200 AC 01/27 PO 0619 Amlodipine Besylate 10 MG DAILY 01/23 0900 AC 01/27 PO 1040 Allopurinol 100 MG DAILY 01/21 0900 AC 01/27 PO 1039 Aspirin 325 MG DAILY 01/21 0900 AC 01/27 PO 1039 Colchicine 0.6 MG DAILY 01/21 0900 AC 01/27 PO 1040 Lorazepam 0.5 MG Q4H PRN 01/21 0100 AC 01/27 IV 0511 Heparin Sodium 5,000 UNITS BID 01/20 2100 AC 01/27 (Porcine) SC 1040 Lisinopril 40 MG DAILY 01/20 1830 AC 01/27 PO 1040 Atorvastatin Calcium 10 MG QPM 01/20 1800 AC 01/26 PO 1919 Allergies Coded Allergies: No Known Drug Allergy (08/04/15) Physical Exam Vital Signs / I&Os Vital Signs Date Time Temp Pulse Resp B/P Pulse O2 O2 Flow FiO2 Ox Delivery Rate 01/27 1610 Room Air 0.0 01/27 1410 97.3 63 18 142/70 97 Room Air 01/27 1013 97.3 63 18 145/85 97 Room Air 01/27 0603 97.5 59 18 133/72 94 Room Air 01/27 0216 98.1 59 20 144/66 96 Room Air 0.0 01/27 0100 0.0 01/26 2206 97.5 60 50 138/69 98 Room Air 01/26 1800 97.7 72 18 159/88 100 Room Air I&O 01/27 0000 01/26 1600 01/26 0800 Intake Total 1050 1200 Output Total 425 450 675 Balance 625 750 -675 General Appearance Alert, Cooperative, No acute distress Lungs Clear to auscultation, Normal air movement Cardiovascular Regular rate and rhythm, Normal S1 and S2 Abdomen Normal bowel sounds, Soft, No tenderness Extremities No cyanosis, No clubbing Psych/Mental Status Mood normal, Confused Assessment and Plan Problem List 1. Glioblastoma Plan -Status much improved. -Decreased agitation -Continue Decadron 4 mg every 6 hours -Patient ready to discharge to assisted living/[facility] facility 2. Altered mental status, unspecified Plan -See above 3. HTN (hypertension) Plan -Blood pressure well controlled -Low-salt diet -Monitor Current status: Fair, stable Anticipated discharge date: Anticipated discharge when placement arranged Anticipated discharge placement: Assisted living/[facility] facility Patient care time: Time spent in chart review, patient interview, physical exam, CPOE, and care documentation: 25 minutes Visit to patient today: 1 Complexity of care: Moderate E&M Codes Rounding: Inpt-Moderate/56722
[2017-01-27 18:31] VITALS: BP 143/72
--- NOTE | 2017-01-27 18:31 | NUR ---
MADE SEVERAL ATTEMPTS TO WAKE PT UP, ELEVATED HOB TO GET HIM TO WAKE ENOUGH TO TAKE ORAL MEDS. WCTM.
--- NOTE | 2017-01-27 19:52 | NUR ---
I discussed with the patient their current medications, possible side effects, and answered questions.
--- NOTE | 2017-01-27 21:04 | NUR ---
MONITORING URINE OUTPUT TO VERIFY CATHETER HAS PROPER PLACEMENT. OUTPUT IS 25 IN 1 HOUR. NOTIFIED LUIS JARRETT.
[2017-01-27 22:10] VITALS: BP 157/83
--- NOTE | 2017-01-27 22:14 | NUR ---
NO URINE OUTPUT FOR LAST HOUR AND BLOOD IS BEGINNING TO DRAIN FROM CATHETER TIP. NOTIFIED MD HILL. NEW ORDERS: REMOVE CURRENT CATHETER, IF BLOOD PRESENT FROM PENIS, ALLOW BODY TO REST AND MONITOR OUTPUT AND PATIENT'S REACTION TO ABILITY TO URINATE. IF NO BLOOD PLACE COUDEUX CATHETER AND MONITOR.
--- NOTE | 2017-01-27 22:57 | NUR ---
REMOVED CATHETER, PATIENT HAD ALL BUT REMOVED TUBING COMPLETELY. BLEEDING AT SITE AND WILL REST. REPORT TO MONITOR FOR RETENTION WILL BE GIVEN TO UPCOMING RN.
[2017-01-28 02:16] VITALS: BP 140/56
--- NOTE | 2017-01-28 02:30 | NUR ---
Patient has since passed urine twice after the bladder being scanned. Urine with a light red tinge. Will continue to monitor.
[2017-01-28 06:28] VITALS: BP 166/89
--- NOTE | 2017-01-28 06:53 | Progress Note ---
Subjective General Note Date: January 28, 2017 Admission Date: January 20, 2017 Hospital Day: 9 PCP: Cesar Acuna M.D. Advanced Directive: NO CODE Status: Inpatient, ACU Room: 206 Brief History: The patient is a 81-year-old white male with a significant past medical history of glioblastoma multiforme, stroke, gout, hypercholesteremia, hypertension who presented to [facility] emergency department on the day of admission with confusion/ mental status changes, nonpurposeful spontaneous movements, involuntary movements. [facility] ER evaluation was consistent with glioblastoma multiforme with associated edema. Secondary to the above, the patient was admitted by Dayo Olivarez M.D. for further evaluation and treatment. For other history present illness, past medical history, family history, social history, review of systems, and admission physical examination please see the patient's history and physical examination and ER visit note in the patient's medical record. Subjective: The patient is doing well this morning. No complaints. Sitting in bed conversing appropriately. Follows commands appropriately. No significant agitation Patient requests: None Medications and Allergies Medications Current Medications Sig/Taylor Start time Last Medication Dose Route Stop Time Status Admin Dexamethasone 4 MG QID 01/25 1400 AC 01/28 PO 0615 Quetiapine Fumarate 25 MG BID 01/25 1038 AC 01/27 PO 2148 Acetaminophen 650 MG Q6H PRN 01/24 2300 AC PO Polyethylene Glycol 17 GM TID 01/24 2200 AC 01/28 PO 0615 Amlodipine Besylate 10 MG DAILY 01/23 0900 AC 01/27 PO 1040 Allopurinol 100 MG DAILY 01/21 0900 AC 01/27 PO 1039 Aspirin 325 MG DAILY 01/21 0900 AC 01/27 PO 1039 Colchicine 0.6 MG DAILY 01/21 0900 AC 01/27 PO 1040 Lorazepam 0.5 MG Q4H PRN 01/21 0100 AC 01/27 IV 0511 Heparin Sodium 5,000 UNITS BID 01/20 2100 AC 01/27 (Porcine) SC 2148 Lisinopril 40 MG DAILY 01/20 1830 AC 01/27 PO 1040 Atorvastatin Calcium 10 MG QPM 01/20 1800 AC 01/27 PO 1826 Allergies Coded Allergies: No Known Drug Allergy (08/04/15) Physical Exam Vital Signs / I&Os Vital Signs Date Time Temp Pulse Resp B/P Pulse O2 O2 Flow FiO2 Ox Delivery Rate 01/28 0628 97.7 66 18 166/89 98 01/28 0230 Room Air 0.0 01/28 0216 97.5 62 18 140/56 98 Room Air 01/27 2210 97.7 63 18 157/83 96 Room Air 01/27 1831 97.5 70 16 143/72 97 Room Air 01/27 1610 Room Air 0.0 01/27 1410 97.3 63 18 142/70 97 Room Air 01/27 1013 97.3 63 18 145/85 97 Room Air I&O 01/28 0000 01/27 1600 01/27 0800 Intake Total 480 720 0 Output Total 475 375 500 Balance 5 345 -500 General Appearance Alert, Cooperative, No acute distress Lungs Clear to auscultation Cardiovascular Regular rate and rhythm, Normal S1 and S2 Abdomen Normal bowel sounds, Soft Extremities No cyanosis, No clubbing Psych/Mental Status Mood normal, Confused LAB Results Laboratory Tests 01/28 0602 Chemistry Plasma Sodium Pending Plasma Potassium Pending Plasma Chloride Pending CO2 (Enzymatic) Pending BUN Pending Creatinine Pending Est GFR ( Amer) Pending Est GFR (Non-Af Amer) Pending Glucose Pending Plasma Calcium Pending Hematology WBC (4.5 - 11.5 K/uL) 15.9 RBC (4.50 - 5.90 M/uL) 4.65 Hgb (13.5 - 17.5 gm/dL) 14.2 Hct (41.0 - 53.0 %) 42.6 MCV (80 - 100 fL) 92 MCH (26 - 34 pg) 31 RDW (11.6 - 14.8 %) 13.8 Neut % (Auto) (50 - 75 %) Pending Lymph % (Auto) (25 - 40 %) Pending [place] % (Auto) (3 - 14 %) Pending Band Neutrophils % (0 - 8 %) Pending Plt Count, EDTA (150 - 400 K/uL) 131 PUBS MCHC (31 - 37 g/dL) 33 Assessment and Plan Problem List 1. Glioblastoma Plan -Stable -Continue Decadron -Attempt to arrange follow-up with neuro oncology 2. Altered mental status, unspecified Plan -Status much improved -No significant agitation at this time. -Patient remains confused at times. -Patient has responded well to Seroquel 25 mg by mouth every morning and 50 mg by mouth daily at bedtime. -Ready for placement in assisted living/adult home/home with home health 3. HTN (hypertension) Plan -Blood pressure mildly elevated -Blood pressure 166/89 mmHg -Continue present therapy of lisinopril 40 mg by mouth daily and Norvasc 10 mg by mouth daily. -Add Maxzide 25 1 by mouth daily to current medical regimen Current status: Fair, improved Anticipated discharge date: Patient ready for discharge from medical standpoint Anticipated discharge placement: [facility] facility, adult home, home with home health Patient care time: Time spent in chart review, patient interview, physical exam, CPOE, and care documentation: 25 minutes Visit to patient today: 1 Complexity of care: Moderate E&M Codes Rounding: Inpt-Moderate/54119
--- NOTE | 2017-01-28 11:13 | NUR ---
pt supine in bed and easily aroused. pt agreeable to ambulate in the hallways. pt completed supine to sit with HOB at 15 degrees Min A. pt completed sit to stand using a FWW Min A. A for only t/c cueing and v/c for hand placement. pt ambulated 300ft around halls Min A as pt would veer to the left hitting the wall with his FWW. pt had notiable shuffling gait throughout the entire gait bout. pt requested to sit in chair instead of bed. pt left with sitter in chair. pt continues to need 24/7 A for all mobility as pt demonstrates impulsivities. He was able to follow direction commands when given v/c. pt is discharged to nursing to ambulate in hallways 2-3x/day pt will be see 1-2x/wk by PT while here at [facility].
--- NOTE | 2017-01-28 11:38 | NUR ---
HAS BEEN A DELIGHT TO WORK WITH TODAY. WHEN I ARIVED FOR WORK HE WAS PLEASENT, HAPPY, AND TOOK DIRECTION VERY WELL. HE TOLD ME WHERE HE WORKED."[employer]" AND THAT HE HAD TWO DAUGHTERS. THE YUNGEST IN [place], AND THE OLDEST IN [place]. HE HAS SHAVED HIS FACE WITH HIS ELECTRIC RAZOR. HE TOLD ME HE DOES NOT GET HIS FACE WET TO SHAVE. HE ASKED FOR COFFEE AND WE SAT AND TALKED MORE. HE LIKES MY[employer]Y MOVIES AND HIS FAVORITE MUSIC IS COUNTRY AND WESTERN. ASKED HIM IF HE LIKED SHORTY GIBBS AND HE SAID YES.
[2017-01-28 15:38] VITALS: BP 128/58
--- NOTE | 2017-01-28 15:40 | NUR ---
PATIENT RESTING IN BED. CAN BE INPULSIVE AT TIMES. REORIENTS WELL. SHAKIRA ROMEO IS SPENDING THE DAY WITH HIM. LETS STAFF KNOW WHEN HE NEEDS TO HAVE A BM. WORKED WITH PT THIS SHIFT. WALKS WITH A WALKER. TAKING PO FOOD WELL AND TAKING PILLS WITH APPLESAUCE WHOLE.
[2017-01-28 22:19] VITALS: BP 128/72
--- NOTE | 2017-01-28 23:59 | NUR ---
VSS. SITTER AT BEDSIDE. BED ALARM ON. AMBULATING HALLS THIS SHIFT. VAZQUEZ IN PLACE. CALM AND COOPERATIVE WITH CARE. NOTHING NEW TO REPORT. WCTM.
[2017-01-29 02:49] VITALS: BP 138/73
[2017-01-29 06:16] VITALS: BP 133/67
--- NOTE | 2017-01-29 06:50 | Progress Note ---
Subjective General Note Date: January 29, 2017 Admission Date: January 20, 2017 Hospital Day: 10 PCP: Cesar Acuna M.D. Advanced Directive: NO CODE Status: Inpatient, ACU Room: 206 Brief History: The patient is a 81-year-old white male with a significant past medical history of glioblastoma multiforme, stroke, gout, hypercholesteremia, hypertension who presented to [facility] emergency department on the day of admission with confusion/ mental status changes, nonpurposeful spontaneous movements, involuntary movements. [facility] ER evaluation was consistent with glioblastoma multiforme with associated edema. Secondary to the above, the patient was admitted by Dayo Olivarez M.D. for further evaluation and treatment. For other history present illness, past medical history, family history, social history, review of systems, and admission physical examination please see the patient's history and physical examination and ER visit note in the patient's medical record. Subjective: The patient is doing well at this time. No significant agitation. No significant palms overnight. Patient doing well on Seroquel therapy. Ambulating with assistance. Patient requests: None Medications and Allergies Medications Current Medications Sig/Taylor Start time Last Medication Dose Route Stop Time Status Admin Enoxaparin Sodium 40 MG DAILY 01/29 0900 AC SC Triamterene/HCTZ 1 TAB DAILY 01/28 1400 AC 01/28 PO 1725 Dexamethasone 4 MG QID 01/25 1400 AC 01/28 PO 2125 Quetiapine Fumarate 25 MG BID 01/25 1038 AC 01/28 PO 2125 Acetaminophen 650 MG Q6H PRN 01/24 2300 AC PO Polyethylene Glycol 17 GM TID 01/24 2200 AC 01/28 PO 1324 Amlodipine Besylate 10 MG DAILY 01/23 0900 AC 05 PO 0907 Allopurinol 100 MG DAILY 01/21 0900 AC 05 PO 0906 Aspirin 325 MG DAILY 01/21 0900 AC 05 PO 0906 Colchicine 0.6 MG DAILY 01/21 0900 AC 01/28 PO 0907 Lorazepam 0.5 MG Q4H PRN 01/21 0100 AC 05 IV 0511 Lisinopril 40 MG DAILY 01/20 1830 AC 05 PO 0907 Atorvastatin Calcium 10 MG QPM 01/20 1800 AC 01/28 PO 1725 Allergies Coded Allergies: No Known Drug Allergy (08/04/15) Physical Exam Vital Signs / I&Os Vital Signs Date Time Temp Pulse Resp B/P Pulse O2 O2 Flow FiO2 Ox Delivery Rate 01/29 0616 133/67 01/29 0614 97.9 62 18 96 01/29 0315 Room Air 01/29 0249 97.5 50 18 138/73 98 Room Air 01/28 2219 97.7 62 18 128/72 94 Room Air 01/28 1538 98.8 66 18 128/58 98 I&O 01/29 0000 01/28 1600 01/28 0800 Intake Total 240 325 490 Output Total 300 425 750 Balance -60 -100 -260 General Appearance Alert, Cooperative, No acute distress Lungs Clear to auscultation Cardiovascular Regular rate and rhythm, Normal S1 and S2 Abdomen Normal bowel sounds, Soft Extremities No cyanosis, No clubbing Assessment and Plan Problem List 1. Glioblastoma Plan -Stable -Decadron 4 mg by mouth 4 times a day -Outpatient follow-up with PCP/neuro oncology -Patient ready for discharge once accepting facility identified. 2. Altered mental status, unspecified Plan -Much improved -Adjustments in Seroquel therapy have been effective in allowing patient to have decreased agitation and more effective interaction -Patient appears to be at baseline mental status -Ready for discharge at this time awaiting placement per discharge planning 3. HTN (hypertension) Plan -Stable -Blood pressure well controlled -BP 133/67 mmHg -Continue present therapy -Low-salt diet on discharge Current status: Fair, stable Anticipated discharge date: Patient ready for discharge awaiting placement per discharge planning Anticipated discharge placement: [facility] facility/adult home/home with home health Patient care time: Time spent in chart review, patient interview, physical exam, CPOE, and care documentation: 25 minutes Visit to patient today: 1 Complexity of care: Moderate E&M Codes Rounding: Inpt-Moderate/92972
--- NOTE | 2017-01-29 06:50 | Progress Note ---
Subjective General Note Date: January 29, 2017 Admission Date: January 20, 2017 Hospital Day: 10 PCP: Cesar Acuna M.D. Advanced Directive: NO CODE Status: Inpatient, ACU Room: 206 Brief History: The patient is a 81-year-old white male with a significant past medical history of glioblastoma multiforme, stroke, gout, hypercholesteremia, hypertension who presented to [facility] emergency department on the day of admission with confusion/ mental status changes, nonpurposeful spontaneous movements, involuntary movements. [facility] ER evaluation was consistent with glioblastoma multiforme with associated edema. Secondary to the above, the patient was admitted by Dayo Olivarez M.D. for further evaluation and treatment. For other history present illness, past medical history, family history, social history, review of systems, and admission physical examination please see the patient's history and physical examination and ER visit note in the patient's medical record. Subjective: The patient is doing well at this time. No significant agitation. No significant palms overnight. Patient doing well on Seroquel therapy. Ambulating with assistance. Patient requests: None Medications and Allergies Medications Current Medications Sig/Taylor Start time Last Medication Dose Route Stop Time Status Admin Enoxaparin Sodium 40 MG DAILY 01/29 0900 AC SC Triamterene/HCTZ 1 TAB DAILY 01/28 1400 AC 01/28 PO 1725 Dexamethasone 4 MG QID 01/25 1400 AC 01/28 PO 2125 Quetiapine Fumarate 25 MG BID 01/25 1038 AC 01/28 PO 2125 Acetaminophen 650 MG Q6H PRN 01/24 2300 AC PO Polyethylene Glycol 17 GM TID 01/24 2200 AC 01/28 PO 1324 Amlodipine Besylate 10 MG DAILY 01/23 0900 AC 05 PO 0907 Allopurinol 100 MG DAILY 01/21 0900 AC 05 PO 0906 Aspirin 325 MG DAILY 01/21 0900 AC 05 PO 0906 Colchicine 0.6 MG DAILY 01/21 0900 AC 01/28 PO 0907 Lorazepam 0.5 MG Q4H PRN 01/21 0100 AC 05 IV 0511 Lisinopril 40 MG DAILY 01/20 1830 AC 05 PO 0907 Atorvastatin Calcium 10 MG QPM 01/20 1800 AC 01/28 PO 1725 Allergies Coded Allergies: No Known Drug Allergy (08/04/15) Physical Exam Vital Signs / I&Os Vital Signs Date Time Temp Pulse Resp B/P Pulse O2 O2 Flow FiO2 Ox Delivery Rate 01/29 0616 133/67 01/29 0614 97.9 62 18 96 01/29 0315 Room Air 01/29 0249 97.5 50 18 138/73 98 Room Air 01/28 2219 97.7 62 18 128/72 94 Room Air 01/28 1538 98.8 66 18 128/58 98 I&O 01/29 0000 01/28 1600 01/28 0800 Intake Total 240 325 490 Output Total 300 425 750 Balance -60 -100 -260 General Appearance Alert, Cooperative, No acute distress Lungs Clear to auscultation Cardiovascular Regular rate and rhythm, Normal S1 and S2 Abdomen Normal bowel sounds, Soft Extremities No cyanosis, No clubbing Assessment and Plan Problem List 1. Glioblastoma Plan -Stable -Decadron 4 mg by mouth 4 times a day -Outpatient follow-up with PCP/neuro oncology -Patient ready for discharge once accepting facility identified. 2. Altered mental status, unspecified Plan -Much improved -Adjustments in Seroquel therapy have been effective in allowing patient to have decreased agitation and more effective interaction -Patient appears to be at baseline mental status -Ready for discharge at this time awaiting placement per discharge planning 3. HTN (hypertension) Plan -Stable -Blood pressure well controlled -BP 133/67 mmHg -Continue present therapy -Low-salt diet on discharge Current status: Fair, stable Anticipated discharge date: Patient ready for discharge awaiting placement per discharge planning Anticipated discharge placement: [facility] facility/adult home/home with home health Patient care time: Time spent in chart review, patient interview, physical exam, CPOE, and care documentation: 25 minutes Visit to patient today: 1 Complexity of care: Moderate E&M Codes Rounding: Inpt-Moderate/[id number]
--- NOTE | 2017-01-29 10:30 | NUR ---
RECEIVED PT UP IN THE CHAIR, AWAKE, ALERT, CONFUSED, DISORIENTED BUT COOPERATIVE, OBEYS SIMPLE COMMANDS. V/S TAKEN AND RECORDED. ASSESSMENT DONE. PT DENIES ANY PAIN AT THIS TIME. DUE MEDS GIVEN WITH APPLESAUCE, TOLERATED IT WELL. AT 1100, PT IS BACK IN BED. NEEDS ATTENDED.
[2017-01-29 14:16] VITALS: BP 147/84
--- NOTE | 2017-01-29 20:30 | NUR ---
Patient has been cooperative and appeared settled for the night and continues to have one to one care. Marino catheter draining good amounts of urine.
[2017-01-29 20:43] VITALS: BP 134/76
[2017-01-30 06:08] VITALS: BP 145/72
--- NOTE | 2017-01-30 07:30 | Progress Note ---
Subjective General Note Date: January 30, 2017 Admission Date: January 20, 2017 Hospital Day: 11 PCP: Cesar Acuna M.D. Advanced Directive: NO CODE Status: Inpatient, ACU Room: 206 Brief History: The patient is a 81-year-old white male with a significant past medical history of glioblastoma multiforme, stroke, gout, hypercholesteremia, hypertension who presented to [facility] emergency department on the day of admission with confusion/ mental status changes, nonpurposeful spontaneous movements, involuntary movements. [facility] ER evaluation was consistent with glioblastoma multiforme with associated edema. Secondary to the above, the patient was admitted by Dayo Olivarez M.D. for further evaluation and treatment. For other history present illness, past medical history, family history, social history, review of systems, and admission physical examination please see the patient's history and physical examination and ER visit note in the patient's medical record. Subjective: The patient is doing well at this time. No significant agitation or behavioral problems. Ready for discharge Patient requests: None Medications and Allergies Medications Current Medications Sig/Taylor Start time Last Medication Dose Route Stop Time Status Admin Polyethylene Glycol 17 GM QAM 01/30 09 AC PO Enoxaparin Sodium 40 MG DAILY 01/29 0900 AC 01/29 SC 0956 Triamterene/HCTZ 1 TAB DAILY 01/28 1400 AC 01/29 PO 0956 Dexamethasone 4 MG QID 01/25 1400 AC 01/30 PO 0609 Quetiapine Fumarate 25 MG BID 01/25 1038 AC 01/29 PO 2038 Acetaminophen 650 MG Q6H PRN 01/24 2300 AC PO Amlodipine Besylate 10 MG DAILY 01/23 0900 AC 01/29 PO 0956 Allopurinol 100 MG DAILY 01/21 09 AC 01/29 PO 0956 Aspirin 325 MG DAILY 01/21 09 AC 01/29 PO 0956 Colchicine 0.6 MG DAILY 01/21 0900 AC 01/29 PO 0956 Lorazepam 0.5 MG Q4H PRN 01/21 0100 AC 01/27 IV 0511 Lisinopril 40 MG DAILY 01/20 1830 AC 01/29 PO 0956 Atorvastatin Calcium 10 MG QPM 01/20 1800 AC 01/29 PO 1852 Allergies Coded Allergies: No Known Drug Allergy (08/04/15) Physical Exam Vital Signs / I&Os Vital Signs Date Time Temp Pulse Resp B/P Pulse O2 O2 Flow FiO2 Ox Delivery Rate 01/30 0608 63 18 145/72 01/29 2045 Room Air 01/29 204 97.9 66 18 134/76 96 Room Air 01/29 1416 97.5 71 18 147/84 98 01/29 1000 Room Air 0.0 I&O 01/30 0000 01/29 1600 01/29 0800 Intake Total 360 720 245 Output Total 375 450 650 Balance -15 270 -405 General Appearance Alert, Cooperative, No acute distress Lungs Clear to auscultation Cardiovascular Regular rate and rhythm Abdomen Normal bowel sounds, Soft Extremities No cyanosis, No clubbing Assessment and Plan Problem List 1. Glioblastoma Plan -Stable -Continue Decadron 4 mg by mouth 4 times a day -Outpatient follow-up with PCP/neuro oncology this week 2. 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 HTN (hypertension) Plan -Well-controlled -Monitor 4. Constipation Plan -Resolved -MiraLAX 17 g in 8 ounces of water daily Current status: Fair, improved Anticipated discharge date: Anticipated discharge in a.m. Anticipated discharge placement: Adult home/assisted living Patient care time: Time spent in chart review, patient interview, physical exam, CPOE, and care documentation: 25 minutes Visit to patient today: 1 Complexity of care: Low E&M Codes Rounding: Inpt-Low/[id number]
--- NOTE | 2017-01-30 07:30 | Progress Note ---
Subjective General Note Date: January 30, 2017 Admission Date: January 20, 2017 Hospital Day: 11 PCP: Cesar Acuna M.D. Advanced Directive: NO CODE Status: Inpatient, ACU Room: 206 Brief History: The patient is a 81-year-old white male with a significant past medical history of glioblastoma multiforme, stroke, gout, hypercholesteremia, hypertension who presented to [facility] emergency department on the day of admission with confusion/ mental status changes, nonpurposeful spontaneous movements, involuntary movements. [facility] ER evaluation was consistent with glioblastoma multiforme with associated edema. Secondary to the above, the patient was admitted by Dayo Olivarez M.D. for further evaluation and treatment. For other history present illness, past medical history, family history, social history, review of systems, and admission physical examination please see the patient's history and physical examination and ER visit note in the patient's medical record. Subjective: The patient is doing well at this time. No significant agitation or behavioral problems. Ready for discharge Patient requests: None Medications and Allergies Medications Current Medications Sig/Taylor Start time Last Medication Dose Route Stop Time Status Admin Polyethylene Glycol 17 GM QAM 01/30 09 AC PO Enoxaparin Sodium 40 MG DAILY 01/29 0900 AC 01/29 SC 0956 Triamterene/HCTZ 1 TAB DAILY 01/28 1400 AC 01/29 PO 0956 Dexamethasone 4 MG QID 01/25 1400 AC 01/30 PO 0609 Quetiapine Fumarate 25 MG BID 01/25 1038 AC 01/29 PO 2038 Acetaminophen 650 MG Q6H PRN 01/24 2300 AC PO Amlodipine Besylate 10 MG DAILY 01/23 0900 AC 01/29 PO 0956 Allopurinol 100 MG DAILY 01/21 09 AC 01/29 PO 0956 Aspirin 325 MG DAILY 01/21 09 AC 01/29 PO 0956 Colchicine 0.6 MG DAILY 01/21 0900 AC 01/29 PO 0956 Lorazepam 0.5 MG Q4H PRN 01/21 0100 AC 01/27 IV 0511 Lisinopril 40 MG DAILY 01/20 1830 AC 01/29 PO 0956 Atorvastatin Calcium 10 MG QPM 01/20 1800 AC 01/29 PO 1852 Allergies Coded Allergies: No Known Drug Allergy (08/04/15) Physical Exam Vital Signs / I&Os Vital Signs Date Time Temp Pulse Resp B/P Pulse O2 O2 Flow FiO2 Ox Delivery Rate 01/30 0608 63 18 145/72 01/29 2045 Room Air 01/29 204 97.9 66 18 134/76 96 Room Air 01/29 1416 97.5 71 18 147/84 98 01/29 1000 Room Air 0.0 I&O 01/30 0000 01/29 1600 01/29 0800 Intake Total 360 720 245 Output Total 375 450 650 Balance -15 270 -405 General Appearance Alert, Cooperative, No acute distress Lungs Clear to auscultation Cardiovascular Regular rate and rhythm Abdomen Normal bowel sounds, Soft Extremities No cyanosis, No clubbing Assessment and Plan Problem List 1. Glioblastoma Plan -Stable -Continue Decadron 4 mg by mouth 4 times a day -Outpatient follow-up with PCP/neuro oncology this week 2. 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 HTN (hypertension) Plan -Well-controlled -Monitor 4. Constipation Plan -Resolved -MiraLAX 17 g in 8 ounces of water daily Current status: Fair, improved Anticipated discharge date: Anticipated discharge in a.m. Anticipated discharge placement: Adult home/assisted living Patient care time: Time spent in chart review, patient interview, physical exam, CPOE, and care documentation: 25 minutes Visit to patient today: 1 Complexity of care: Low E&M Codes Rounding: Inpt-Low/[id number]
--- NOTE | 2017-01-30 09:15 | NUR ---
RECEIVED PT BACK IN BED, ASLEEP.
[2017-01-30 09:56] VITALS: BP 126/69
--- NOTE | 2017-01-30 10:35 | NUR ---
RECEIVED PT UP IN THE CHAIR, AWAKE, ALERT, PLEASANTLY CONFUSED. COOPERATIVE, EASILY REDIRECTED. V/S TAKEN AND RECORDED. ASSESSMENT DONE. PT DENIES ANY PAIN AT THIS TIME. DUE MEDS GIVEN WITH APPLE JUICE, TOLERATED IT WELL. THEN PT AMBULATE TO THE [facility] WITH MISS MCCLOUD.
--- NOTE | 2017-01-30 12:00 | NUR ---
PT'S DAUGHTER CAME TO VISIT AND INFORMED THAT SHE HAVE TO APPOINTMENTS WITH ADULT FACILITY TOMORROW AT 1000. SHE IS IN CONTACT WITH CHO[facility]? THEY ARE THE ONE WHO IS RECOMMENDS THE FACILITIES. CY Chaudhari. NOTIFIED.
[2017-01-30 13:51] VITALS: BP 117/70
[2017-01-30 18:08] VITALS: BP 143/85
[2017-01-30 22:14] VITALS: BP 140/80
[2017-01-31 02:54] VITALS: BP 160/92
--- NOTE | 2017-01-31 05:32 | NUR ---
UNEVENTFUL NIGHT, PT SLEPT WELL AFTER FINALLY FALLING ASLEEP. VSS AND NO COMPLAINTS OF PAIN. SITTER IN ROOM.
[2017-01-31 05:55] VITALS: BP 137/79
--- NOTE | 2017-01-31 06:57 | Progress Note ---
Subjective General Note Date: January 31, 2017 Admission Date: January 20, 2017 Hospital Day: 12 PCP: Cesar Acuna M.D. Advanced Directive: NO CODE Status: Inpatient, ACU Room: 206 Brief History: The patient is a 81-year-old white male with a significant past medical history of glioblastoma multiforme, stroke, gout, hypercholesteremia, hypertension who presented to [facility] emergency department on the day of admission with confusion/ mental status changes, nonpurposeful spontaneous movements, involuntary movements. [facility] ER evaluation was consistent with glioblastoma multiforme with associated edema. Secondary to the above, the patient was admitted by Dayo Olivarez M.D. for further evaluation and treatment. For other history present illness, past medical history, family history, social history, review of systems, and admission physical examination please see the patient's history and physical examination and ER visit note in the patient's medical record. Subjective: The patient states he is doing well today. Alert, cooperative, ambulating with assistance. Ready for discharge Patient requests: None Medications and Allergies Medications Current Medications Sig/Taylor Start time Last Medication Dose Route Stop Time Status Admin Polyethylene Glycol 17 GM QAM 01/30 09 AC 01/30 PO 1036 Enoxaparin Sodium 40 MG DAILY 01/29 0900 AC 01/30 SC 1035 Triamterene/HCTZ 1 TAB DAILY 01/28 1400 AC 01/30 PO 1036 Dexamethasone 4 MG QID 01/25 1400 AC 01/31 PO 0627 Quetiapine Fumarate 25 MG BID 01/25 1038 AC 01/30 PO 2221 Acetaminophen 650 MG Q6H PRN 01/24 2300 AC PO Amlodipine Besylate 10 MG DAILY 01/23 0900 AC 01/30 PO 1035 Allopurinol 100 MG DAILY 01/21 09 AC 01/30 PO 1034 Aspirin 325 MG DAILY 01/21 0900 AC 01/30 PO 1034 Colchicine 0.6 MG DAILY 01/21 0900 AC 01/30 PO 1035 Lisinopril 40 MG DAILY 01/20 1830 AC 01/30 PO 1035 Atorvastatin Calcium 10 MG QPM 01/20 1800 AC 01/30 PO 1714 Allergies Coded Allergies: No Known Drug Allergy (08/04/15) Physical Exam Vital Signs / I&Os Vital Signs Date Time Temp Pulse Resp B/P Pulse O2 O2 Flow FiO2 Ox Delivery Rate 01/31 0555 59 18 137/79 95 Room Air 01/31 0254 97.7 64 18 160/92 96 Room Air 01/30 2214 97.9 69 18 140/80 98 01/30 2200 Room Air 01/30 1808 97.7 77 20 143/85 95 Room Air 01/30 1351 97.9 72 20 117/70 98 Room Air 0.0 01/30 1048 Room Air 0.0 01/30 0956 97.5 60 126/69 97 Room Air 0.0 I&O 01/31 0000 01/30 1600 01/30 0800 Intake Total 250 960 320 Output Total 577 824 9709 Balance -600 335 -780 General Appearance Alert, Cooperative, No acute distress Lungs Clear to auscultation, Normal air movement Cardiovascular Regular rate and rhythm, Normal S1 and S2 Abdomen Normal bowel sounds, Soft, No tenderness Extremities No cyanosis, No clubbing, No edema Psych/Mental Status Mood normal Assessment and Plan Problem List 1. Glioblastoma Plan -Stable -Outpatient follow-up with PCP/neuro-oncology -Continue Decadron 4 mg by mouth every 6 hours 2. Altered mental status, unspecified Plan -Much improved -No recent agitation -Continue Seroquel at present dosage schedule 3. HTN (hypertension) Plan -BP well-controlled. BP this a.m. 137/79 -Low-salt diet -Continue present management 4. Constipation Plan -Resolved Current status: Fair, improved Anticipated discharge date: Anticipated discharge date today if placement found by discharge planning Anticipated discharge placement: Assisted living/adult home Patient care time: Time spent in chart review, patient interview, physical exam, CPOE, and care documentation: 25 minutes Visit to patient today: 1 Complexity of care: Low Patient ready for discharge at this time. No medical indications for ongoing hospitalization. Awaiting discharge planning's placement of patient E&M Codes Rounding: Inpt-Low/[id number]
[2017-01-31 12:43] VITALS: BP 121/76
--- NOTE | 2017-01-31 12:47 | NUR ---
MIGNON WALKED VERY WELL TODAY. SAT UP IN CHAIR AND FED HIMSELF LUNCH. JUST NEEDED TO ASK WHAT HE WANTED NEXT.WATCHING TV NOW.
[2017-01-31 14:25] VITALS: BP 131/69
--- NOTE | 2017-01-31 16:45 | NUR ---
Elias is using his call light appropriately when he needs staff attention.
--- NOTE | 2017-01-31 17:00 | NUR ---
DC'd VAZQUEZ PER ORDERS, DUE TO PT COMPLAINTS OF PAIN AND SCANT BLOODY DISCHARGE AROUND CATHETER
--- NOTE | 2017-01-31 17:34 | NUR ---
STARTED OUT THE DAY HARDLY SPEAKING AT ALL, BUT WAS VERY COOPERATIVE, TOOK ALL HIS MEDS WITHOUT PROBLEM. AT THIS TIME HE IS SPEAKING MORE, MAKING SMALL JOKES ABOUT THE FOOD AND ABOUT HE FEELS BETTER AFTER WE GAVE HIM TYLENOL. HE WAS C/O PAIN FROM HIS PENIS, AND THERE WAS A SLIGHT AMOUNT OF REDDISH DRAINAGE COMING OUT FROM AROUND HIS VAZQUEZ. HE WAS MED WITH THE TYLENOL AND HIS VAZQUEZ WAS D/CD PER DR. CHO. WE WILL CONTINUE TO WATCH HIS URINE OUTPUT TO SEE IF THERE IS ANY BLOODY DRAINAGE.
[2017-01-31 18:12] VITALS: BP 137/67
[2017-01-31 22:19] VITALS: BP 135/62
[2017-02-01 03:54] VITALS: BP 142/77
--- NOTE | 2017-02-01 05:36 | NUR ---
PATIENT HAD AN UNREMARKABLE NIGHT, SLEPT MOST OF THE NIGHT. PLEASANT AND COOPERAIVE WITH CARE. SITTER AT BEDSIDE.
[2017-02-01 06:44] VITALS: BP 140/76
--- NOTE | 2017-02-01 09:23 | Progress Note ---
Subjective General feels uncomfortable because has to go to bathroom, also mildly frustarated cause not much can be done for his brain TM Physical Exam Vital Signs / I&Os Vital Signs Date Time Temp Pulse Resp B/P Pulse O2 O2 Flow FiO2 Ox Delivery Rate 02/01 0644 97.3 51 20 140/76 96 Room Air 0.0 02/01 0354 97.9 57 15 142/77 97 Room Air 01/31 2219 98.4 69 16 135/62 93 Room Air 01/31 2030 Room Air 01/31 1812 97.7 71 18 137/67 95 Room Air 01/31 1425 97.5 65 18 131/69 98 Room Air 01/31 1243 98.1 73 18 121/76 95 I&O 02/01 0000 01/31 1600 01/31 0800 Intake Total 480 900 375 Output Total 329 950 400 Balance 151 -50 -25 Lungs Clear to auscultation Cardiovascular Regular rate and rhythm, Normal S1 and S2 Abdomen Normal bowel sounds, Soft, No tenderness Extremities No edema Assessment and Plan Problem List 1. Glioblastoma Plan stable awaiting for SNIF placement 2. HTN (hypertension) Plan controlled, continue current meds 3. Elevated WBC count Plan there is no other signs of infection therefore Abx is not warrantedk this must be due to longe term use of steroid will try to weat off by changing to prednison but will monitor
[2017-02-01 10:36] VITALS: BP 145/72
--- NOTE | 2017-02-01 11:57 | NUR ---
pt not seen d/t high census. Will ck bk 5-17
[2017-02-01] MEDS ORDERED: COLCRYS0.6 M1 PO (12:13)
[2017-02-01] MEDS ORDERED: SEROQUEL25 MG PO (12:13)
[2017-02-01] MEDS ORDERED: LISINOPRIL10 MG PO (12:13)
[2017-02-01] MEDS ORDERED: ALLOPURINOL100 M1 PO (12:13)
[2017-02-01] MEDS ORDERED: AMLODIPINE BESYL5 MG PO (12:13)
[2017-02-01] MEDS ORDERED: PREDNISONE10 MG PO (12:13)
[2017-02-01] MEDS ORDERED: TRIAMTERENE/HYD1 CAP PO (12:13)
[2017-02-01 12:26] VITALS: BP 145/72
--- NOTE | 2017-02-01 12:45 | NUR ---
NOTIFIED MD OF POTASSIUM AND WBC ELEVATION. PT TO DC HOME.
--- NOTE | 2017-02-01 14:12 | NUR ---
pt. DC'd home with daughter (to Assisted Living) at 1355 - patient left with all personal belongings, no iv's or drains, escorted out by customer care manager via WC. Attempted to call report to [facility] twice, but they said they were busy and would call back. Daughter verbalized understanding of DC instructions and that electrolytes need to be checked on follow up appointment. Given signed rx and DC packet with appointment made for f/u with PCP. While writing this note, Lawanda from [place] Called, given report, per Lawanda, no further questions at this time.
--- NOTE | 2017-02-01 14:39 | DISCHARGE SUMMARY ---
ADMIT DATE: 01/21/2017 DISCHARGE DATE: 02/01/2017 DISCHARGE DIAGNOSES: 1. Glioblastoma. 1. Change in mental status, resolved. 2. Hypertension. 3. Hyperlipidemia. BRIEF HISTORY: This is an 81-year-old white male who was admitted on 01/20/2017. Reportedly, the patient's daughter found him in his room with the furniture in disarray and trashed. The patient was confused and making purposeful spontaneous movements, confused and lethargic and he was not aware of what he is doing or where he is and disoriented, so the patient was brought to the emergency department for further evaluation. HOSPITAL COURSE: The patient was admitted to the [facility] and we did a neuro checked and was started on dexamethasone 4 mg every 6 hours and the discussion we had with the patient's neuro-oncologist Dr. Lee, decision was made that the patient to stay here for [facility] and discharge to assisted living. The patient had MRI of the brain done which showed a stable lesion and the patient gradually improved during the hospital course and became alert and oriented and back to her normal baseline mental status. DISCHARGE INSTRUCTIONS/MEDICATIONS: Disposition: The patient is being discharged today since bed is available as assisted living. The patient will be discharged to assisted living to follow up with his primary care physician as an outpatient. Also to see his neuro-oncologist Dr. Lee as outpatient as soon as possible for management of the glioblastoma. We will change dexamethasone to prednisone oral 30 mg daily for 7 days, then decreased it to 20 mg for another 7 days and then 10 mg another 7 days. Discharge Medications: 1. Dyazide 1 tablet daily. 2. Seroquel 25 mg twice a day. 3. Amlodipine 10 mg daily. 4. Colchicine 0.6 mg daily. 5. Aspirin 325 mg daily. 6. Allopurinol 100 mg daily. 7. Lisinopril 40 mg daily. 8. Atorvastatin 10 mg daily.
== END 2017-02-01 13:42 | disposition home or self-care (01) | DRG 54 ==
LOC: ED SRH 12:15 → TRANS SRH 15:19 → ACUTE2 SRH 15:19 → ACUTE3 SRH 01-25 16:41 → ACUTE2 SRH 01-25 16:41
PROVIDERS: ADMIT Student in an Organized Health Care Education/Training Program
DX: C71.3 Malignant neoplasm of parietal lobe (principal); G93.6 Cerebral edema; R41.0 Disorientation, unspecified; R44.1 Visual hallucinations; I10 Essential (primary) hypertension; E78.00 Pure hypercholesterolemia, unspecified; Z87.891 Personal history of nicotine dependence; M10.9 Gout, unspecified; Z92.3 Personal history of irradiation; K59.00 Constipation, unspecified; D72.829 Elevated white blood cell count, unspecified; Z78.1 Physical restraint status

== ENCOUNTER 2017-03-03 18:17 | Emergency (ER) | payer OTHER ==
[~2017-03-03 18:17] MED LIST: ALLOPURINOL100 M1 PO; AMLODIPINE BESYL5 MG PO; COLCRYS0.6 M1 PO; LISINOPRIL10 MG PO; PREDNISONE10 MG PO; SEROQUEL25 MG PO; SIMVASTATIN40 MG; TRIAMTERENE/HYD1 CAP PO
--- NOTE | 2017-03-03 21:18 | ED ORDER SUMMARY ---
..... Patient: WILIAN SHIELDS OrderSheet [facility] VisitID: [id number] [place] [address] 82y, M Registration Date/Time: 03/03/2017 ORDER SHEET Weight: 62.1 kg (stated) Allergies: None GENERAL ORDERS: CBC w Diff Urgent (18:57 03/03/2017 HBivens A.R.N.P.) (Ack 18:58 KHoerner) (19:05 MCook R.N.) CMP Urgent (18:57 03/03/2017 HBivens A.R.N.P.) (Ack 18:58 KHoerner) (19:05 MCook R.N.) UA-Culture if indicated Urgent (18:57 03/03/2017 HBivens A.R.N.P.) (Ack 18:58 KHoerner) (19:49 JSanders R.N.) MEDICATION ORDERS: IV FLUIDS: ORDER SHEET NOTES: [Electronically signed by Suelma RmR.N.P. (21:34 03/03/2017)] [Electronically signed by Carissa Gay R.N. (00:31 03/04/2017)] [Electronically locked/signed by Carissa Gay R.N. (00:31 03/04/2017)]
--- NOTE | 2017-03-03 21:18 | ED NURSING NOTES ---
Clinical Report - Nurses [facility] [place] [address] 03/03/2017 18:17 Patient: WILIAN SHIELDS TRIAGE Triage time 18:42 Mar 03 2017. Chief Complaint: DIFFICULTY VOIDING and FREQUENCY VOIDING. --18:52 Rhett Waters R.N. 18:42 03/03/17. BP: 125/63. HR: 78. RR: 18. O2 saturation: 96% on room air. Temp: 98.1 F. Pain level now: 0/10. --18:52 Rhett Waters R.N. Weight: 62.1 kg stated. Height/Length: 67 inches Per Patient. BMI: 21.5. --18:42 Rhett Waters R.N. Medications Allopurinol Oral 100 mg. Amlodipine Besylate-Valsartan Oral. Aspirin Oral. Colchicine Oral 0.6 mg. Daily Vitamin Oral. Lisinopril Oral 40 mg. [place] 3 Oral (Capsule 1000 mg). Prostate Therapy Complex Oral. Simvastatin Oral 20 mg. Triamcinolone & Emollient External. Vitamin D Oral. --18:47 Rhett Waters R.N. Allergies None. --18:47 Rhett Waters R.N. History Arrived by private vehicle. Historian: friend. Accompanied by friend. Primary physician (Dr. Ricketts). This started today. ( Pt has a hx of glioblastoma. Lives in a custodial facility and family/friends have noticed he is having increased confusion and urinary incontinence coupled with inability to void at certain intervals. Pt's PCP saw Pt and recommended Pt be evaluated in ED for possible pyelonephritis.). PAST MEDICAL HX: Immunizations: up-to-date. SOCIAL HX: Former smoker (quit 50 years ago). No alcohol use or drug use. No infectious disease exposure. ABUSE ASSESSMENT: No report of abuse. SELF HARM ASSESSMENT: A self harm assessment was performed. The patient answered "no" to the question "Have you recently felt down, depressed, or hopeless?" and "Are you here because you tried to hurt yourself?". NUTRITIONAL RISK ASSESSMENT: The nutritional risk assessment revealed no deficiencies. FALL RISK ASSESSMENT: Fall risk assessment completed. Risk factors identified include patient impairment of mobility, sensation and cognition. Fall interventions initiated. Side rails up x2. Brakes on Bed in low position. Patient visible from nurses' station. Trigonometry Teacher at bedside. Call light in reach of patient and pocket closer. Instructed not to get up without assistance. FUNCTIONAL ASSESSMENT: Functional assessment performed: requires assistance with the activities of daily living; uses walker- this mobility impairment is an ongoing problem; has poor vision and wears glasses- this visual impairment is an ongoing problem; cognitive impairment present- this cognitive impairment is an ongoing problem. The patient is under physician care for his functional impairment. LEARNING NEEDS ASSESSMENT: A learning needs assessment was performed. The preferred method of learning is via verbal instruction, written instruction and demonstration. Factors affecting the patient's ability to learn include cognitive limitations. SKIN INTEGRITY ASSESSMENT: Skin integrity risk assessment completed. No skin integrity risk identified. --18:52 Rhett Waters R.N. PROBLEMS: Glioblastoma Multiforme. CVA - Cerebrovascular Accident. Gliablastoma. Gout. Cataracts. Hypercholesterolemia. Prostatitis. Hypertension. --18:48 Rhett Waters R.N. ADDITIONAL SURGERIES: Tumor removal. Vasectomy. --18:48 Rhett Waters R.N. Interventions ID band on patient. To treatment room. --18:52 Rhett Waters R.N. PHYSICAL ASSESSMENT Ambulatory to room. GENERAL / NEURO / PSYCH: Alert. Oriented X 4. Appears in no acute distress. HEENT: Mucous membranes are pink. RESPIRATORY: Respirations not labored. CVS: Capillary refill less than 2 seconds. SKIN: Skin is warm and dry. --18:52 Rhett Waters R.N. NURSING PROGRESS NOTES The plan of care for this patient has been created. Monitoring of patient in place. Head of bed elevated. Reassurance given. Two patient identifiers checked. Call light placed in reach. Side rails up x 2. Bed placed in lowest position. Patient ready for evaluation- BAKER PAINT notified. --18:53 Rhett Waters R.N. Care transferred and report given (to LIV Ferrer). --19:05 Rhett Waters R.N. 19:28 03/03/17. ( Patient drinking fluids for urine sample, lifted up in bed to a more comfortable position.). --19:28 Carissa Gay R.N. 20:35 03/03/17. ( Rounded on patient, he says nothing is needed at this time). --20:35 Carissa Gay R.N. DISPOSITION / DISCHARGE 21:34 03/03/17. Departure time: 21:33 Mar 03 2017. Condition at departure: unchanged. No learning barriers present. Discharge instructions provided and reviewed with the patient. Reviewed medication(s) side effects, precautions, dosing and course information. Prescription(s) given to the patient. Patient verbalized understanding. Written instructions provided in Malaysian. The patient was discharged by the nurse practitioner. He was discharged home and accompanied by pocket closer. He left the Emergency Department ambulatory and via private vehicle. Trigonometry Teacher driving. --21:34 Carissa Gay R.N. 21:32 03/03/17. BP: 121/63 (regular adult cuff) taken on the right arm, while sitting. HR: 81. RR: 18. O2 saturation: 98% on room air. Temp: 98.2 F (oral). Pain level now: 0/10. --21:34 Carissa Gay R.N. Locked/Released at 03/04/2017 0:31 by Carissa Gay R.N.
--- NOTE | 2017-03-03 21:18 | ED CLINICAL REPORT ---
Clinical Report - Physicians/Mid Levels [facility] [address] [place] [address] 03/03/2017 18:17 Patient: WILIAN SHIELDS Time Seen: 18:37; initial patient contact, initial documentation, patient care assumed. Arrived- By private vehicle. Historian- patient and friend. HISTORY OF PRESENT ILLNESS Chief Complaint: URINARY FREQUENCY. This started about 2 weeks ago and is still present. The problem is described as mild. No penile discharge, discomfort with urination, testicular pain, urgency of urination or flank pain. The patient has had urinary frequency. Able to void. Not voiding only small amounts. Sexual history is noncontributory. (had a couple episodes incontinence). Similar symptoms previously: None. Recent medical care: Not recently seen/assessed. REVIEW OF SYSTEMS No fever, flank pain, hematuria, abdominal pain or vomiting. No diarrhea, chest pain or difficulty breathing. All systems otherwise negative, except as recorded above. PAST HISTORY See nurses notes. ( PROBLEMS: Glioblastoma Multiforme. CVA - Cerebrovascular Accident. Gliablastoma. Gout. Cataracts. Hypercholesterolemia. Prostatitis. Hypertension. --18:48 Rhett Waters, R.N. ADDITIONAL SURGERIES: Tumor removal. Vasectomy. --18:48 Rhett Waters R.N.). SOCIAL HISTORY Never smoker. No alcohol use or drug use. No recent travel. Is a local resident. Resides in a longterm home. FAMILY HISTORY Negative. ADDITIONAL NOTES The nursing notes have been reviewed with agreement regarding the chief complaint, HPI, ROS, PMH and patient medications and allergies. PHYSICAL EXAM Vital Signs: 03/03/2017 18:42 BP: 125/63. HR: 78. RR: 18. O2 saturation: 96%. Temp: 98.1 F. Pain level now: 0/10. Have been reviewed as normal and appear to be correct. Appearance: Alert. Oriented X3. No acute distress. ENT: Normal external inspection. Pharynx normal. Neck: Neck supple. CVS: Heart sounds normal. Respiratory: No respiratory distress. Breath sounds normal. Abdomen: Soft and nontender. Bowel sounds normal. No organomegaly. No mass. Back: Normal external inspection. Skin: Skin warm and dry. Normal skin color. No rash. Normal skin turgor. Extremities: Extremities exhibit normal ROM. No lower extremity edema. Neuro: Oriented X 3. No motor deficit. No sensory deficit. LABS, X-RAYS, AND EKG Laboratory Tests: UA-Culture if indicated: (CARYN: 03/03/2017 19:45) ( [facility] 03/03/2017 20:33) Final results Test Result Flag Units (Reference) URINE COLOR YELLOW URINE APPEARANCE CLEAR URINE GLUCOSE NEGATIVE (NEGATIVE) URINE BILIRUBIN NEGATIVE (NEGATIVE) URINE KETONE NEGATIVE (NEGATIVE) URINE SPECIFIC GRAVITY 1.020 (1.010-1.030) URINE PH 6.0 (5.0-8.0) URINE PROTEIN NEGATIVE (NEGATIVE) URINE UROBILINOGEN 1.0 EU/dL (0.2-1.0) URINE NITRITE NEGATIVE (NEGATIVE) URINE BLOOD NEGATIVE (NEGATIVE) URINE LEUK ESTERASE POSITIVE (NEGATIVE) URINE RBC 0-1 rbc/hpf (0-1) URINE WBC 25-50 wbc/hpf (0-1) URINE EPITHELIAL CELLS 0-1 EPI/hpf (0-5) URINE BACTERIA FEW (1+) (NONE SEEN) URINE COMMENT CULTURE INDICATED URINE CULTURES ARE SET-UP BASED ON THE FOLLOWING CRITERIA:POSITIVE NITRITEPOSITIVE LEUKOCYTE ESTERASEGREATER THAN 10 WHITE BLOOD CELLSMODERATE (2+) OR GREATER BACTERIA CBC w Diff: (CARYN: 03/03/2017 19:05) ( [facility] 03/03/2017 19:13) Final results Test Result Flag Units (Reference) WHITE BLOOD COUNT 6.8 K/uL (4.5-11.5) RED BLOOD COUNT 3.55 L M/uL (4.50-5.90) HEMOGLOBIN 10.8 L gm/dL (13.5-17.5) HEMATOCRIT 31.8 L % (41.0-53.0) MEAN CELL VOLUME 90 fL (80-100) MEAN CORPUSCULAR HGB 30 pg (26-34) MEAN CORPUSCULAR HGB CONC 34 g/dL (31-37) RED CELL DISTRIBUTION WIDTH 15.2 H % (11.6-14.8) PLATELET COUNT 173 K/uL (150-400) NEUTROPHIL % 73.6 % (50-75) LYMPH % 10.7 L % (25-40) MONO % 14.0 % (3-14) EOSINOPHIL % 1.4 % (0-4) BASOPHIL % 0.3 % (0-2) CMP: (CARYN: 03/03/2017 19:05) ( MsgRcvd 03/03/2017 19:37) Final results Test Result Flag Units (Reference) GLUCOSE 193 H mg/dL (70-110) BUN 21 H mg/dL (7-18) CREATININE 1.1 mg/dL (0.6-1.3) Estimated GFR >60 mL/min Estimated GFR- >60 mL/min Note: Persistent reduction over 3 months in eGFR<60 mL/min/1.73 m2 defines CKD. Patients with eGFR values>=60 mL/min/1.73 m2 may also have CKD if evidence ofpersistent proteinuria. Additional information may be foundat www.kidney.org. SODIUM 139 mmol/L (136-145) POTASSIUM 3.8 mmol/L (3.5-5.1) CHLORIDE 103 mmol/L (98-107) CARBON DIOXIDE 29 mmol/L (21-32) CALCIUM 8.4 L mg/dL (8.5-10.1) TOTAL PROTEIN 5.6 L g/dL (6.4-8.2) ALBUMIN 2.5 L g/dL (3.3-5.0) BILIRUBIN, TOTAL 1.2 H mg/dL (0.0-1.0) ALKALINE PHOSPHATASE 82 U/L (46-116) AST (SGOT) 17 U/L (15-37) ALT (SGPT) 19 U/L (12-78) . PROGRESS AND PROCEDURES Course of Care: 19:41 03/03/17. pt has brief hai, nothing alarming, see report for full details. Patient counseled in person regarding the patient's stable condition, test results and diagnosis. 21:13. Differential Diagnosis: Other possible considerations: uti, pyelo, prostatitis, bph, thyroid disease, alzheimers, dementia, electrolyte imbalance. Above considerations are based on history, physical exam, reassessment and laboratory data. Differential diagnosis was discussed with patient. Disposition: Discharged home in good and unchanged condition (21:18). Condition: good and stable. CLINICAL IMPRESSION Acute urinary tract infection with cystitis. No pyelonephritis or hematuria. Not associated with indwelling catheter or obstruction. INSTRUCTIONS Drink plenty of fluids. No sexual contact. Warnings: GENERAL WARNINGS: Return or contact your physician immediately if your condition worsens or changes unexpectedly, if not improving as expected, or if other problems arise. Specifically return if problem worsens. Prescription Medications: Pyridium 200 mg: take 1 orally every 8 hours as needed for urinary problems. Dispense six (6). No refills. Substitution is permissible. Cipro 500 mg: take 1 tab orally every 12 hours for 10 days. Dispense twenty (20). No refills. Substitution is permissible. Follow-up: Follow up with your doctor in about three days even if well. Call for an appointment. Summary of care provided to patient. Understanding of the discharge instructions verbalized by patient. (Electronically signed by Sulema Rm A.R.N.P. 03/03/2017 21:34)
--- NOTE | 2017-03-03 21:18 | ED NURSING NOTES ---
Clinical Report - Nurses [facility] [place] [address] 03/03/2017 18:17 Patient: WILIAN SHIELDS TRIAGE Triage time 18:42 Mar 03 2017. Chief Complaint: DIFFICULTY VOIDING and FREQUENCY VOIDING. --18:52 Rhett Waters R.N. 18:42 03/03/17. BP: 125/63. HR: 78. RR: 18. O2 saturation: 96% on room air. Temp: 98.1 F. Pain level now: 0/10. --18:52 Rhett Waters R.N. Weight: 62.1 kg stated. Height/Length: 67 inches Per Patient. BMI: 21.5. --18:42 Rhett Waters R.N. Medications Allopurinol Oral 100 mg. Amlodipine Besylate-Valsartan Oral. Aspirin Oral. Colchicine Oral 0.6 mg. Daily Vitamin Oral. Lisinopril Oral 40 mg. [place] 3 Oral (Capsule 1000 mg). Prostate Therapy Complex Oral. Simvastatin Oral 20 mg. Triamcinolone & Emollient External. Vitamin D Oral. --18:47 Rhett Waters R.N. Allergies None. --18:47 Rhett Waters R.N. History Arrived by private vehicle. Historian: friend. Accompanied by friend. Primary physician (Dr. Ricketts). This started today. ( Pt has a hx of glioblastoma. Lives in a [facility] facility and family/friends have noticed he is having increased confusion and urinary incontinence coupled with inability to void at certain intervals. Pt's PCP saw Pt and recommended Pt be evaluated in ED for possible pyelonephritis.). PAST MEDICAL HX: Immunizations: up-to-date. SOCIAL HX: Former smoker (quit 50 years ago). No alcohol use or drug use. No infectious disease exposure. ABUSE ASSESSMENT: No report of abuse. SELF HARM ASSESSMENT: A self harm assessment was performed. The patient answered "no" to the question "Have you recently felt down, depressed, or hopeless?" and "Are you here because you tried to hurt yourself?". NUTRITIONAL RISK ASSESSMENT: The nutritional risk assessment revealed no deficiencies. FALL RISK ASSESSMENT: Fall risk assessment completed. Risk factors identified include patient impairment of mobility, sensation and cognition. Fall interventions initiated. Side rails up x2. Brakes on Bed in low position. Patient visible from nurses' station. Flour Inspector at bedside. Call light in reach of patient and honey liquefier. Instructed not to get up without assistance. FUNCTIONAL ASSESSMENT: Functional assessment performed: requires assistance with the activities of daily living; uses walker- this mobility impairment is an ongoing problem; has poor vision and wears glasses- this visual impairment is an ongoing problem; cognitive impairment present- this cognitive impairment is an ongoing problem. The patient is under physician care for his functional impairment. LEARNING NEEDS ASSESSMENT: A learning needs assessment was performed. The preferred method of learning is via verbal instruction, written instruction and demonstration. Factors affecting the patient's ability to learn include cognitive limitations. SKIN INTEGRITY ASSESSMENT: Skin integrity risk assessment completed. No skin integrity risk identified. --18:52 Rhett Waters R.N. PROBLEMS: Glioblastoma Multiforme. CVA - Cerebrovascular Accident. Gliablastoma. Gout. Cataracts. Hypercholesterolemia. Prostatitis. Hypertension. --18:48 Rhett Waters R.N. ADDITIONAL SURGERIES: Tumor removal. Vasectomy. --18:48 Rhett Waters R.N. Interventions ID band on patient. To treatment room. --18:52 Rhett Waters R.N. PHYSICAL ASSESSMENT Ambulatory to room. GENERAL / NEURO / PSYCH: Alert. Oriented X 4. Appears in no acute distress. HEENT: Mucous membranes are pink. RESPIRATORY: Respirations not labored. CVS: Capillary refill less than 2 seconds. SKIN: Skin is warm and dry. --18:52 Rhett Waters R.N. NURSING PROGRESS NOTES The plan of care for this patient has been created. Monitoring of patient in place. Head of bed elevated. Reassurance given. Two patient identifiers checked. Call light placed in reach. Side rails up x 2. Bed placed in lowest position. Patient ready for evaluation- HEALTHCARE RECEPTIONIST notified. --18:53 Rhett Waters R.N. Care transferred and report given (to LIV Ferrer). --19:05 Rhett Waters R.N. 19:28 03/03/17. ( Patient drinking fluids for urine sample, lifted up in bed to a more comfortable position.). --19:28 Carissa Gay R.N. 20:35 03/03/17. ( Rounded on patient, he says nothing is needed at this time). --20:35 Carissa Gay R.N. DISPOSITION / DISCHARGE 21:34 03/03/17. Departure time: 21:33 Mar 03 2017. Condition at departure: unchanged. No learning barriers present. Discharge instructions provided and reviewed with the patient. Reviewed medication(s) side effects, precautions, dosing and course information. Prescription(s) given to the patient. Patient verbalized understanding. Written instructions provided in Czech. The patient was discharged by the nurse practitioner. He was discharged home and accompanied by honey liquefier. He left the Emergency Department ambulatory and via private vehicle. Flour Inspector driving. --21:34 Carissa Gay R.N. 21:32 03/03/17. BP: 121/63 (regular adult cuff) taken on the right arm, while sitting. HR: 81. RR: 18. O2 saturation: 98% on room air. Temp: 98.2 F (oral). Pain level now: 0/10. --21:34 Carissa Gay R.N. Locked/Released at 03/04/2017 0:31 by Carissa Gay R.N.
--- NOTE | 2017-03-03 21:18 | ED ORDER SUMMARY ---
..... Patient: WILIAN SHIELDS OrderSheet [facility] VisitID: [id number] [place] [address] 82y, M Registration Date/Time: 03/03/2017 ORDER SHEET Weight: 62.1 kg (stated) Allergies: None GENERAL ORDERS: CBC w Diff Urgent (18:57 03/03/2017 HBivens A.R.N.P.) (Ack 18:58 KHoerner) (19:05 MCook R.N.) CMP Urgent (18:57 03/03/2017 HBivens A.R.N.P.) (Ack 18:58 KHoerner) (19:05 MCook R.N.) UA-Culture if indicated Urgent (18:57 03/03/2017 HBivens A.R.N.P.) (Ack 18:58 KHoerner) (19:49 JSanders R.N.) MEDICATION ORDERS: IV FLUIDS: ORDER SHEET NOTES: [Electronically signed by Sulema RmR.N.P. (21:34 03/03/2017)] [Electronically signed by Carissa Gay R.N. (00:31 03/04/2017)] [Electronically locked/signed by Carissa Gay R.N. (00:31 03/04/2017)]
--- NOTE | 2017-03-04 00:32 | ED MAR SUMMARY ---
..... Medication Administration Record [facility] [address] [place], [place] [id number] Patient: WILIAN SHIELDS Visit ID: [id number] 82y, M Weight: 62.1 kg Height/Length: 67 in BMI: 21.5 ALLERGIES: None
--- NOTE | 2017-03-04 00:32 | ED DISCHARGE INSTRUCTIONS ---
Patient: WILIAN SHIELDS General Instructions [facility] VisitID: [id number] [place] [address] 82y, M Registration Date/Time: 03/03/2017 Acute urinary tract infection with cystitis. No pyelonephritis or hematuria. Not associated with indwelling catheter or obstruction. INSTRUCTIONS Drink plenty of fluids. No sexual contact. Warnings: GENERAL WARNINGS: Return or contact your physician immediately if your condition worsens or changes unexpectedly, if not improving as expected, or if other problems arise. Specifically return if problem worsens. Prescription Medications: Pyridium 200 mg: take 1 orally every 8 hours as needed for urinary problems. Dispense six (6). No refills. Substitution is permissible. Cipro 500 mg: take 1 tab orally every 12 hours for 10 days. Dispense twenty (20). No refills. Substitution is permissible. Follow-up: Follow up with your doctor in about three days even if well. Call for an appointment. Summary of care provided to patient. Understanding of the discharge instructions verbalized by patient. ADDITIONAL INFORMATION Bladder Infection,Male (Adult) A bladder infection ("cystitis" or "UTI") usually causes a constant urge to urinate, and a burning when passing urine. Urine may be cloudy, smelly or dark. There may be also be pain in the lower abdomen. Cystitis in males is not common. It may be caused by a partial blockage in the urinary system that keeps the bladder from emptying completely. This is most often related to an enlarged prostate gland. Home Care: Drink lots of fluids (at least 6-8 glasses a day). This will flush the bacteria out of your bladder. Avoid sexual intercourse until your symptoms are gone. Avoid caffeine, alcohol, and spicy foods. They could irritate the bladder. A bladder infection is treated with antibiotics. You may also be given Pyridium (generic - phenazopyridine) to reduce burning with urination. This will cause urine to become a bright orange color, which can stain clothing. Follow Up with your doctor or this facility if ALL symptoms have not cleared within five days. It is important to keep your follow up appointment to discuss with your doctor the need for further tests of the urinary tract. Get Prompt Medical Attention if any of the following occur: Fever of 100.4F (38C) or higher, or as directed by your healthcare provider No improvement by the third day of treatment Increasing back or abdominal pain Repeated vomiting; unable to keep medicine down Weakness, dizziness or fainting Phenazopyridine Hydrochloride Oral tablet What is this medicine? PHENAZOPYRIDINE (fen az oh YULI gayle) is a pain reliever. It is used to stop the pain, burning, or discomfort caused by infection or irritation of the urinary tract. This medicine is not an antibiotic. It will not cure a urinary tract infection. How should I use this medicine? Take this medicine by mouth with a glass of water. Follow the directions on the prescription label. Take after meals. Take your doses at regular intervals. Do not take your medicine more often than directed. Do not skip doses or stop your medicine early even if you feel better. Do not stop taking except on your doctor's advice. Talk to your mill manager regarding the use of this medicine in children. Special care may be needed. What side effects may I notice from receiving this medicine? Side effects that you should report to your doctor or health critical care paramedic as soon as possible: allergic reactions like skin rash, itching or hives, swelling of the face, lips, or tongue blue or purple color of the skin difficulty breathing fever less urine unusual bleeding, bruising unusual tired, weak vomiting yellowing of the eyes or skin Side effects that usually do not require medical attention (report to your doctor or health critical care paramedic if they continue or are bothersome): dark urine headache stomach upset What may interact with this medicine? Interactions are not expected. What if I miss a dose? If you miss a dose, take it as soon as you can. If it is almost time for your next dose, take only that dose. Do not take double or extra doses. Where should I keep my medicine? Keep out of the reach of children. Store at room temperature between 15 and 30 degrees C (59 and 86 degrees F). Protect from light and moisture. Throw away any unused medicine after the expiration date. What should I tell my health care provider before I take this medicine? They need to know if you have any of these conditions: btubdim-1-ofxukgplo dehydrogenase (G6PD) deficiency kidney disease an unusual or allergic reaction to phenazopyridine, other medicines, foods, dyes, or preservatives or trying to get breast-feeding What should I watch for while using this medicine? Tell your doctor or health critical care paramedic if your symptoms do not improve or if they get worse. This medicine colors body fluids red. This effect is harmless and will go away after you are done taking the medicine. It will change urine to an dark orange or red color. The red color may stain clothing. Soft contact lenses may become permanently stained. It is best not to wear soft contact lenses while taking this medicine. If you are diabetic you may get a false positive result for sugar in your urine. Talk to your health care provider. Ciprofloxacin Hydrochloride Oral tablet What is this medicine? CIPROFLOXACIN (sip tana FLOX a sin) is a quinolone antibiotic. It is used to treat certain kinds of bacterial infections. It will not work for colds, flu, or other viral infections. How should I use this medicine? Take this medicine by mouth with a glass of water. Follow the directions on the prescription label. Take your medicine at regular intervals. Do not take your medicine more often than directed. Take all of your medicine as directed even if you think your are better. Do not skip doses or stop your medicine early. You can take this medicine with food or on an empty stomach. It can be taken with a meal that contains dairy or calcium, but do not take it alone with a dairy product, like milk or yogurt or calcium-fortified juice. A special MedGuide will be given to you by the pharmacist with each prescription and refill. Be sure to read this information carefully each time. Talk to your mill manager regarding the use of this medicine in children. Special care may be needed. What side effects may I notice from receiving this medicine? Side effects that you should report to your doctor or health critical care paramedic as soon as possible: - allergic reactions like skin rash, itching or hives, swelling of the face, lips, or tongue - breathing problems - confusion, nightmares or hallucinations - feeling faint or lightheaded, falls - irregular heartbeat - joint, muscle or tendon pain or swelling - pain or trouble passing urine -persistent headache with or without blurred vision - redness, blistering, peeling or loosening of the skin, including inside the mouth - seizure - unusual pain, numbness, tingling, or weakness Side effects that usually do not require medical attention (report to your doctor or health critical care paramedic if they continue or are bothersome): - diarrhea - nausea or stomach upset - white patches or sores in the mouth What may interact with this medicine? Do not take this medicine with any of the following medications: cisapride droperidol terfenadine tizanidine This medicine may also interact with the following medications: antacids caffeine cyclosporin didanosine (ddI) buffered tablets or powder medicines for diabetes medicines for inflammation like ibuprofen, naproxen methotrexate multivitamins omeprazole phenytoin probenecid sucralfate theophylline warfarin What if I miss a dose? If you miss a dose, take it as soon as you can. If it is almost time for your next dose, take only that dose. Do not take double or extra doses. Where should I keep my medicine? Keep out of the reach of children. Store at room temperature below 30 degrees C (86 degrees F). Keep container tightly closed. Throw away any unused medicine after the expiration date. What should I tell my health care provider before I take this medicine? They need to know if you have any of these conditions: -bone problems -cerebral disease -joint problems -irregular heartbeat -kidney disease -liver disease -myasthenia gravis -seizure disorder -tendon problems -an unusual or allergic reaction to ciprofloxacin, other antibiotics or medicines, foods, dyes, or preservatives - or trying to get -breast-feeding What should I watch for while using this medicine? Tell your doctor or health critical care paramedic if your symptoms do not improve. Do not treat diarrhea with over the counter products. Contact your doctor if you have diarrhea that lasts more than 2 days or if it is severe and watery. You may get drowsy or dizzy. Do not drive, use machinery, or do anything that needs mental alertness until you know how this medicine affects you. Do not stand or sit up quickly, especially if you are an older patient. This reduces the risk of dizzy or fainting spells. This medicine can make you more sensitive to the sun. Keep out of the sun. If you cannot avoid being in the sun, wear protective clothing and use sunscreen. Do not use sun lamps or tanning beds/booths. Avoid antacids, aluminum, calcium, iron, magnesium, and zinc products for 6 hours before and 2 hours after taking a dose of this medicine. You have been given the following additional information: Bladder Infection, Male (Adult) Phenazopyridine Hydrochloride Oral tablet Ciprofloxacin Hydrochloride Oral tablet (Electronically signed by Sulema Rm A.R.N.P. 03/03/2017 21:34)
--- NOTE | 2017-03-04 00:32 | ED MED RECONCILIATION SUMMARY ---
Patient: WILIAN SHIELDS Medication Reconciliation Report [facility] VisitID: [id number] [place] [address] 82y, M Registration Date/Time: 03/03/2017 Weight: 62.1 kg Height/Length: 67 in. BMI: 21.5 ALLERGIES: None The patient's Home Medications are listed below: THE FOLLOWING MEDICATIONS NEED TO BE RECONCILED: Allopurinol Oral 100 mg Amlodipine Besylate-Valsartan Oral Aspirin Oral Colchicine Oral 0.6 mg Daily Vitamin Oral Lisinopril Oral 40 mg [place] 3 Oral (1000 mg) Prostate Therapy Complex Oral Simvastatin Oral 20 mg Triamcinolone & Emollient External Vitamin D Oral The source(s) of the original Home Medication information: Not obtained. The following Medications were given to the patient in the Emergency Department: None. The following Medications were prescribed to the patient: Pyridium 200 mg: take 1 orally every 8 hours as needed for urinary problems. Dispense six (6). No refills. Substitution is permissible. -- Sulema Rm A.RLamineNLamineP. Cipro 500 mg: take 1 tab orally every 12 hours for 10 days. Dispense twenty (20). No refills. Substitution is permissible. -- Sulema Rm A.RLamineN.P.
--- NOTE | 2017-03-04 00:32 | ED MED RECONCILIATION SUMMARY ---
Patient: WILIAN SHIELDS Medication Reconciliation Report [facility] VisitID: [id number] [place] [address] 82y, M Registration Date/Time: 03/03/2017 Weight: 62.1 kg Height/Length: 67 in. BMI: 21.5 ALLERGIES: None The patient's Home Medications are listed below: THE FOLLOWING MEDICATIONS NEED TO BE RECONCILED: Allopurinol Oral 100 mg Amlodipine Besylate-Valsartan Oral Aspirin Oral Colchicine Oral 0.6 mg Daily Vitamin Oral Lisinopril Oral 40 mg [place] 3 Oral (1000 mg) Prostate Therapy Complex Oral Simvastatin Oral 20 mg Triamcinolone & Emollient External Vitamin D Oral The source(s) of the original Home Medication information: Not obtained. The following Medications were given to the patient in the Emergency Department: None. The following Medications were prescribed to the patient: Pyridium 200 mg: take 1 orally every 8 hours as needed for urinary problems. Dispense six (6). No refills. Substitution is permissible. -- Sulema Rm A.RLamineNLamineP. Cipro 500 mg: take 1 tab orally every 12 hours for 10 days. Dispense twenty (20). No refills. Substitution is permissible. -- Sulema Rm A.RLamineN.P.
--- NOTE | 2017-03-04 00:32 | ED DISCHARGE INSTRUCTIONS ---
Patient: WILIAN SHIELDS General Instructions [facility] VisitID: [id number] [place] [address] 82y, M Registration Date/Time: 03/03/2017 Acute urinary tract infection with cystitis. No pyelonephritis or hematuria. Not associated with indwelling catheter or obstruction. INSTRUCTIONS Drink plenty of fluids. No sexual contact. Warnings: GENERAL WARNINGS: Return or contact your physician immediately if your condition worsens or changes unexpectedly, if not improving as expected, or if other problems arise. Specifically return if problem worsens. Prescription Medications: Pyridium 200 mg: take 1 orally every 8 hours as needed for urinary problems. Dispense six (6). No refills. Substitution is permissible. Cipro 500 mg: take 1 tab orally every 12 hours for 10 days. Dispense twenty (20). No refills. Substitution is permissible. Follow-up: Follow up with your doctor in about three days even if well. Call for an appointment. Summary of care provided to patient. Understanding of the discharge instructions verbalized by patient. ADDITIONAL INFORMATION Bladder Infection,Male (Adult) A bladder infection ("cystitis" or "UTI") usually causes a constant urge to urinate, and a burning when passing urine. Urine may be cloudy, smelly or dark. There may be also be pain in the lower abdomen. Cystitis in males is not common. It may be caused by a partial blockage in the urinary system that keeps the bladder from emptying completely. This is most often related to an enlarged prostate gland. Home Care: Drink lots of fluids (at least 6-8 glasses a day). This will flush the bacteria out of your bladder. Avoid sexual intercourse until your symptoms are gone. Avoid caffeine, alcohol, and spicy foods. They could irritate the bladder. A bladder infection is treated with antibiotics. You may also be given Pyridium (generic - phenazopyridine) to reduce burning with urination. This will cause urine to become a bright orange color, which can stain clothing. Follow Up with your doctor or this facility if ALL symptoms have not cleared within five days. It is important to keep your follow up appointment to discuss with your doctor the need for further tests of the urinary tract. Get Prompt Medical Attention if any of the following occur: Fever of 100.4F (38C) or higher, or as directed by your healthcare provider No improvement by the third day of treatment Increasing back or abdominal pain Repeated vomiting; unable to keep medicine down Weakness, dizziness or fainting Phenazopyridine Hydrochloride Oral tablet What is this medicine? PHENAZOPYRIDINE (fen az oh YULI gayle) is a pain reliever. It is used to stop the pain, burning, or discomfort caused by infection or irritation of the urinary tract. This medicine is not an antibiotic. It will not cure a urinary tract infection. How should I use this medicine? Take this medicine by mouth with a glass of water. Follow the directions on the prescription label. Take after meals. Take your doses at regular intervals. Do not take your medicine more often than directed. Do not skip doses or stop your medicine early even if you feel better. Do not stop taking except on your doctor's advice. Talk to your outside installer apprentice regarding the use of this medicine in children. Special care may be needed. What side effects may I notice from receiving this medicine? Side effects that you should report to your doctor or health respiratory care specialist as soon as possible: allergic reactions like skin rash, itching or hives, swelling of the face, lips, or tongue blue or purple color of the skin difficulty breathing fever less urine unusual bleeding, bruising unusual tired, weak vomiting yellowing of the eyes or skin Side effects that usually do not require medical attention (report to your doctor or health respiratory care specialist if they continue or are bothersome): dark urine headache stomach upset What may interact with this medicine? Interactions are not expected. What if I miss a dose? If you miss a dose, take it as soon as you can. If it is almost time for your next dose, take only that dose. Do not take double or extra doses. Where should I keep my medicine? Keep out of the reach of children. Store at room temperature between 15 and 30 degrees C (59 and 86 degrees F). Protect from light and moisture. Throw away any unused medicine after the expiration date. What should I tell my health care provider before I take this medicine? They need to know if you have any of these conditions: [id number] dehydrogenase (G6PD) deficiency kidney disease an unusual or allergic reaction to phenazopyridine, other medicines, foods, dyes, or preservatives or trying to get breast-feeding What should I watch for while using this medicine? Tell your doctor or health respiratory care specialist if your symptoms do not improve or if they get worse. This medicine colors body fluids red. This effect is harmless and will go away after you are done taking the medicine. It will change urine to an dark orange or red color. The red color may stain clothing. Soft contact lenses may become permanently stained. It is best not to wear soft contact lenses while taking this medicine. If you are diabetic you may get a false positive result for sugar in your urine. Talk to your health care provider. Ciprofloxacin Hydrochloride Oral tablet What is this medicine? CIPROFLOXACIN (sip tana FLOX a sin) is a quinolone antibiotic. It is used to treat certain kinds of bacterial infections. It will not work for colds, flu, or other viral infections. How should I use this medicine? Take this medicine by mouth with a glass of water. Follow the directions on the prescription label. Take your medicine at regular intervals. Do not take your medicine more often than directed. Take all of your medicine as directed even if you think your are better. Do not skip doses or stop your medicine early. You can take this medicine with food or on an empty stomach. It can be taken with a meal that contains dairy or calcium, but do not take it alone with a dairy product, like milk or yogurt or calcium-fortified juice. A special MedGuide will be given to you by the pharmacist with each prescription and refill. Be sure to read this information carefully each time. Talk to your outside installer apprentice regarding the use of this medicine in children. Special care may be needed. What side effects may I notice from receiving this medicine? Side effects that you should report to your doctor or health respiratory care specialist as soon as possible: - allergic reactions like skin rash, itching or hives, swelling of the face, lips, or tongue - breathing problems - confusion, nightmares or hallucinations - feeling faint or lightheaded, falls - irregular heartbeat - joint, muscle or tendon pain or swelling - pain or trouble passing urine -persistent headache with or without blurred vision - redness, blistering, peeling or loosening of the skin, including inside the mouth - seizure - unusual pain, numbness, tingling, or weakness Side effects that usually do not require medical attention (report to your doctor or health respiratory care specialist if they continue or are bothersome): - diarrhea - nausea or stomach upset - white patches or sores in the mouth What may interact with this medicine? Do not take this medicine with any of the following medications: cisapride droperidol terfenadine tizanidine This medicine may also interact with the following medications: antacids caffeine cyclosporin didanosine (ddI) buffered tablets or powder medicines for diabetes medicines for inflammation like ibuprofen, naproxen methotrexate multivitamins omeprazole phenytoin probenecid sucralfate theophylline warfarin What if I miss a dose? If you miss a dose, take it as soon as you can. If it is almost time for your next dose, take only that dose. Do not take double or extra doses. Where should I keep my medicine? Keep out of the reach of children. Store at room temperature below 30 degrees C (86 degrees F). Keep container tightly closed. Throw away any unused medicine after the expiration date. What should I tell my health care provider before I take this medicine? They need to know if you have any of these conditions: -bone problems -cerebral disease -joint problems -irregular heartbeat -kidney disease -liver disease -myasthenia gravis -seizure disorder -tendon problems -an unusual or allergic reaction to ciprofloxacin, other antibiotics or medicines, foods, dyes, or preservatives - or trying to get -breast-feeding What should I watch for while using this medicine? Tell your doctor or health respiratory care specialist if your symptoms do not improve. Do not treat diarrhea with over the counter products. Contact your doctor if you have diarrhea that lasts more than 2 days or if it is severe and watery. You may get drowsy or dizzy. Do not drive, use machinery, or do anything that needs mental alertness until you know how this medicine affects you. Do not stand or sit up quickly, especially if you are an older patient. This reduces the risk of dizzy or fainting spells. This medicine can make you more sensitive to the sun. Keep out of the sun. If you cannot avoid being in the sun, wear protective clothing and use sunscreen. Do not use sun lamps or tanning beds/booths. Avoid antacids, aluminum, calcium, iron, magnesium, and zinc products for 6 hours before and 2 hours after taking a dose of this medicine. You have been given the following additional information: Bladder Infection, Male (Adult) Phenazopyridine Hydrochloride Oral tablet Ciprofloxacin Hydrochloride Oral tablet (Electronically signed by Sulema Rm A.R.N.P. 03/03/2017 21:34)
--- NOTE | 2017-03-04 00:32 | ED MAR SUMMARY ---
..... Medication Administration Record [facility] [address], [place] [id number] Patient: WILIAN SHIELDS Visit ID: [id number] 82y, M Weight: 62.1 kg Height/Length: 67 in BMI: 21.5 ALLERGIES: None
== END 2017-03-03 21:33 | disposition home or self-care (01) ==
LOC: ED SRH 18:17
DX: N30.00 Acute cystitis without hematuria (principal); E78.00 Pure hypercholesterolemia, unspecified; I10 Essential (primary) hypertension; Z79.82 Long term (current) use of aspirin; Z79.899 Other long term (current) drug therapy
CPT/HCPCS: 90004; 90070; 90074; 90100; 90469; 91672; 95059